=== PATIENT | male | born 1950 | race African-American/Black ===

== ENCOUNTER → 2017-05-16 | Day surgery (SDC) | payer MEDICARE ==
[~2017-05-16] MED LIST: HYDROmorphone 2 MG/ML VIAL IV; LIDOCAINE 1% PF 2 ML VIAL. ID; MORPHINE SULFATE 2 MG/ML DISP.SYRIN. IV; MORPHINE SULFATE 4 MG/ML DISP.SYRIN. IV; ONDANSETRON PF 4 MG/2 ML VIAL. IV; PROCHLORPERAZINE 10 MG/2 ML VIAL. IV; PROPOFOL 20 ML IV; fentaNYL PF VIAL 100 MCG/2 ML VIAL IV
[2017-05-16] MEDS: IV RINGERS,LACTATED 1000ML 1,000 ML IV (07:00)
[2017-05-16 08:07] LABS: POC GLUCOSE 122 mg/dL (70-99)
== END | disposition home or self-care (01) ==
LOC: ENDOS 07:31
DX: Z12.11 Encounter for screening for malignant neoplasm of colon (principal); K64.0 First degree hemorrhoids; I10 Essential (primary) hypertension; M10.9 Gout, unspecified; G24.3 Spasmodic torticollis; M13.861 Other specified arthritis, right knee; E78.00 Pure hypercholesterolemia, unspecified; Z96.659 Presence of unspecified artificial knee joint
CPT/HCPCS: 45378; 82962; J2704

== ENCOUNTER 2017-12-28 07:07 | Emergency (ER) | payer MEDICARE ==
[2017-12-28 07:35] LABS: ADD MAN DIFF? NO
[2017-12-28 07:49] LABS: ANION GAP 11 (6-14); BLOOD UREA NITROGEN 23 mg/dL (8-26); CALCIUM 9.1 mg/dL (8.5-10.1); CARBON DIOXIDE 24 mmol/L (21-32); CHLORIDE 105 mmol/L (98-107); CREATININE 1.3 mg/dL (0.7-1.3); GFR 66.4; GLUCOSE 154 mg/dL (70-99); POTASSIUM 3.8 mmol/L (3.5-5.1); SODIUM 140 mmol/L (136-145)
[2017-12-28 07:50] LABS: BASO % 1 % (0-3); EOS # 0.3 x10^3/uL (0.0-0.7); EOS % 4 % (0-3); HEMATOCRIT 41.6 % (39.0-53.0); HEMOGLOBIN 13.9 g/dL (13.0-17.5); LYMPH # 2.2 x10^3/uL (1.0-4.8); LYMPH % 33 % (24-48); MEAN CORPUSCULAR HEMOGLOBIN 29 pg (25-35); MEAN CORPUSCULAR HGB CONC 33 g/dL (31-37); MEAN CORPUSCULAR VOLUME 87 fL (79-100); MONO % 15 % (0-9); NEUT % 47 % (31-73); PLATELET COUNT 233 x10^3/uL (140-400); RED BLOOD COUNT 4.76 x10^6/uL (4.30-5.70); RED CELL DISTRIBUTION WIDTH 14.7 % (11.5-14.5); WHITE BLOOD COUNT 6.5 x10^3/uL (4.0-11.0)
[2017-12-28 07:58] LABS: TROPONINI < 0.017 ng/mL (0.000-0.055)
[2017-12-28] MEDS: MECLIZINE HCL 12.5 MG TABLET. PO (08:09)
[2017-12-28] MEDS: ONDANSETRON PF 4 MG/2 ML VIAL. IV (08:11)
[2017-12-28] MEDS: MORPHINE SULFATE 4 MG/ML DISP.SYRIN. IV (08:14)
[2017-12-28] MEDS: IV NORMAL SALINE 1000ML BAG 1,000 ML IV (10:15)
[2017-12-28] MEDS: KETOROLAC 30 MG/ML INJ. IV (10:16)
== END 2017-12-28 11:50 | disposition home or self-care (01) ==
LOC: ER 07:07
DX: R07.89 Other chest pain (principal); R51 Headache; R42 Dizziness and giddiness; R11.0 Nausea; E78.00 Pure hypercholesterolemia, unspecified; I10 Essential (primary) hypertension; E11.9 Type 2 diabetes mellitus without complications; M10.9 Gout, unspecified; Z86.73 Personal history of transient ischemic attack (TIA), and cerebral infarction without residual deficits
CPT/HCPCS: 36415; 70450; 71046; 80048; 84484; 85025; 93005; 96361; 96374; 96375; 99285-25; J1885; J2270; J2405; J7030; J8597

== ENCOUNTER 2018-10-17 21:13 | Inpatient (IN) | payer MEDICARE ==
[~2018-10-17] VITALS: Ht 175.3 cm; Wt 133.0 kg
[~2018-10-17 21:13] MED LIST changes: +ALLO100T PO; +AMLO5TAB10 PO; +ASPI-630 PO; +ATOR20TA PO; +ATOR20TA58 PO; +GLIP5TAB10 PO; +HYDR-2761 PO; +HYDR-3164 PO; -HYDROmorphone 2 MG/ML VIAL IV; +IBUP-1060 PO; -LIDOCAINE 1% PF 2 ML VIAL. ID; +LOSA1TAB22 PO; +METF10007 PO; +METH-37 PO; -MORPHINE SULFATE 2 MG/ML DISP.SYRIN. IV; -MORPHINE SULFATE 4 MG/ML DISP.SYRIN. IV; -ONDANSETRON PF 4 MG/2 ML VIAL. IV; +OXYC10TA46 PO; +OXYC1TAB22 PO; -PROCHLORPERAZINE 10 MG/2 ML VIAL. IV; -PROPOFOL 20 ML IV; +WARF-78 PO; -fentaNYL PF VIAL 100 MCG/2 ML VIAL IV
[2018-10-17] MEDS ORDERED: ONDANSETRON PF 4 MG/2 ML VIAL. IV ONE (21:30)
[2018-10-17] MEDS ORDERED: MORPHINE SULFATE 4 MG/ML VIAL. IV/SQ PRN (21:30)
[2018-10-17] MEDS ORDERED: KETOROLAC 30 MG/ML VIAL. IV ONE (21:30)
[2018-10-17] MEDS ORDERED: IV NORMAL SALINE 1000ML BAG 1,000 ML IV SCH (21:30)
[2018-10-17 21:59] LABS: BASO % 0 % (0-3); EOS # 0.1 x10^3/uL (0.0-0.7); EOS % 2 % (0-3); HEMOGLOBIN 13.7 g/dL (13.0-17.5); LYMPH # 2.1 x10^3/uL (1.0-4.8); LYMPH % 26 % (24-48); MEAN CORPUSCULAR HEMOGLOBIN 28 pg (25-35); MEAN CORPUSCULAR HGB CONC 33 g/dL (31-37); MEAN CORPUSCULAR VOLUME 86 fL (79-100); MONO # 1.3 x10^3/uL (0.0-1.1); MONO % 16 % (0-9); NEUT # 4.6 x10^3uL (1.8-7.7); NEUT % 56 % (31-73); PLATELET COUNT 211 x10^3/uL (140-400); RED BLOOD COUNT 4.85 x10^6/uL (4.30-5.70); RED CELL DISTRIBUTION WIDTH 15.1 % (11.5-14.5); WHITE BLOOD COUNT 8.2 x10^3/uL (4.0-11.0)
[2018-10-17 22:07] LABS: CALCIUM 9.4 mg/dL (8.5-10.1); CREATININE 1.3 mg/dL (0.7-1.3); GFR 66.4; POTASSIUM 3.4 mmol/L (3.5-5.1)
[2018-10-17] MEDS ORDERED: INDO50CA5 PO (22:07)
[2018-10-17] MEDS ORDERED: METO-269 PO (22:07)
[2018-10-17] MEDS ORDERED: GLIP5TAB22 PO (22:07)
[2018-10-17 22:13] LABS: ALBUMIN 3.5 g/dL (3.4-5.0); ALBUMIN/GLOBULIN RATIO 0.9 (1.0-1.7); TOTAL BILIRUBIN 0.7 mg/dL (0.2-1.0); TOTAL PROTEIN 7.6 g/dL (6.4-8.2)
--- NOTE | 2018-10-17 22:23 | RAD ---
CT abdomen and pelvis without contrast 10/17/2018 Clinical Indication: Left flank pain Comparison: None Technique: Multiple CT images of the abdomen and pelvis were obtained without contrast. *One or more of the following individualized dose reduction techniques were utilized for this examination: 1. Automated exposure control. 2. Adjustment of the mA and/or kV according to patient size. 3. Use of iterative reconstruction technique. Findings: Evaluation of the solid abdominopelvic viscera, vasculature and lymphadenopathy are limited in the absence of intravenous contrast. Heart size is normal. Minimal dependent atelectasis in both lungs. Coronary artery calcifications. Unenhanced contours of the liver, gallbladder, spleen, pancreas, and kidneys are unremarkable. No hydronephrosis or nephrolithiasis. There is a right adrenal gland hypodense nodule measuring 0.9 cm with average Hounsfield units less than 10 consistent with a benign adenoma. There is low-attenuation thickening of the left adrenal gland likely representing hyperplasia or benign adenomatous change. Abdominal aorta is normal in caliber with mild aortoiliac calcified plaque. No bowel obstruction. The appendix is normal in appearance. No abdominal free fluid. No pneumoperitoneum. Urinary bladder, prostate and seminal vesicles unremarkable. There is a fat-containing umbilical hernia. There are no destructive osseous lesions. Impression: 1. No hydronephrosis or nephrolithiasis. 2. Coronary artery calcifications. Electronically signed by: Magan Caballero MD (10/17/2018 10:20 PM) [facility]
--- NOTE | 2018-10-17 22:33 | PHYS DOC ---
Past Medical History Past Medical History: CVA, Diabetes-Type II, High Cholesterol, Hypertension Additional Past Medical Histor: GOUT Past Surgical History: Knee Replacement Additional Past Surgical Histo: RIGHT KNEE, NERVE SX IN BILAT ELBOWS Alcohol Use: Rarely Drug Use: None Adult General Chief Complaint Chief Complaint: FLANK PAIN [facility] HPI Patient is a 59-year-old male who presents with complaint of onset of left- sided flank pain that started yesterday. Patient states that pain has progressively gotten worse. He states the pain is about an 8 out of 10. He denies any nausea or vomiting. He also denies any diaphoresis. He states that he has had no urinary discomfort and has not had any hematuria. He describes the pain as like a deep ache at times and when he takes in a deep breath as sharp and stabbing in nature. Patient states that nothing improves symptoms. Review of Systems Review of Systems Constitutional: Denies fever or chills [] Respiratory: Denies cough or shortness of breath [] Cardiovascular: No additional information not addressed in HPI [] GI: Denies abdominal pain, nausea, vomiting or diarrhea [] : Denies dysuria or hematuria [] Musculoskeletal: Positive for left flank pain [] Integument: Denies rash or skin lesions [] All other systems were reviewed and found to be within normal limits, except as documented in this note. Current Medications Current Medications Current Medications Medications (Trade) Dose Ordered Sig/Antonia Start Time Stop Time Status Last Admin Dose Admin Ketorolac Tromethamine (Toradol 30mg Vial) 30 mg 1X ONCE 10/17/18 21:30 10/17/18 21:33 DC 10/17/18 21:56 30 MG Morphine Sulfate (Morphine Sulfate) 4 mg PRN Q15MIN PRN 10/17/18 21:30 10/18/18 21:29 10/17/18 21:57 4 MG Ondansetron HCl (Zofran) 4 mg 1X ONCE 10/17/18 21:30 10/17/18 21:33 DC 10/17/18 21:56 4 MG Sodium Chloride 1,000 ml @ 1,000 mls/hr Q1H 10/17/18 21:30 10/17/18 22:29 DC 10/17/18 21:57 1,000 MLS/HR Allergies Allergies Allergies Coded Allergies Type Severity Reaction Last Updated Verified No Known Drug Allergies 05/16/17 No Physical Exam Physical Exam Constitutional: Well developed, well nourished, no acute distress, non-toxic appearance. [] HENT: Normocephalic, atraumatic, bilateral external ears normal, oropharynx moist, no oral exudates, nose normal. [] Eyes: PERRLA, EOMI, conjunctiva normal, no discharge. [] Neck: Normal range of motion, no tenderness, supple, no stridor. [] Cardiovascular: Regular rate and rhythm[] Lungs & Thorax: Bilateral breath sounds clear to auscultation [] Abdomen: Bowel sounds normal, soft, no tenderness. [] Skin: Warm, dry, no erythema, no rash. [] Back: No tenderness, no CVA tenderness. Left lateral flank does demonstrate tenderness to palpation just below the rib margin. [] Extremities: No tenderness, no cyanosis, no clubbing, ROM intact, no edema. [] Neurologic: Alert and oriented X 3, no focal deficits noted. [] Current Patient Data Vital Signs Vital Signs Date Time Temp Pulse Resp B/P (MAP) Pulse Ox O2 Delivery O2 Flow Rate FiO2 10/17/18 21:57 22 96 Room Air 10/17/18 21:31 98.5 97 158/89 (112) 98.5 Lab Values Laboratory Tests Test 10/17/18 21:50 White Blood Count 8.2 x10^3/uL (4.0-11.0) Red Blood Count 4.85 x10^6/uL (4.30-5.70) Hemoglobin 13.7 g/dL (13.0-17.5) Hematocrit 42.0 % (39.0-53.0) Mean Corpuscular Volume 86 fL (79-100) Mean Corpuscular Hemoglobin 28 pg (25-35) Mean Corpuscular Hemoglobin Concent 33 g/dL (31-37) Red Cell Distribution Width 15.1 % (11.5-14.5) H Platelet Count 211 x10^3/uL (140-400) Neutrophils (%) (Auto) 56 % (31-73) Lymphocytes (%) (Auto) 26 % (24-48) Monocytes (%) (Auto) 16 % (0-9) H Eosinophils (%) (Auto) 2 % (0-3) Basophils (%) (Auto) 0 % (0-3) Neutrophils # (Auto) 4.6 x10^3uL (1.8-7.7) Lymphocytes # (Auto) 2.1 x10^3/uL (1.0-4.8) Monocytes # (Auto) 1.3 x10^3/uL (0.0-1.1) H Eosinophils # (Auto) 0.1 x10^3/uL (0.0-0.7) Basophils # (Auto) 0.0 x10^3/uL (0.0-0.2) Sodium Level 141 mmol/L (136-145) Potassium Level 3.4 mmol/L (3.5-5.1) L Chloride Level 102 mmol/L (98-107) Carbon Dioxide Level 29 mmol/L (21-32) Anion Gap 10 (6-14) Blood Urea Nitrogen 17 mg/dL (8-26) Creatinine 1.3 mg/dL (0.7-1.3) Estimated GFR (Cockcroft-Gault) 66.4 BUN/Creatinine Ratio 13 (6-20) Glucose Level 112 mg/dL (70-99) H Calcium Level 9.4 mg/dL (8.5-10.1) Total Bilirubin 0.7 mg/dL (0.2-1.0) Aspartate Amino Transferase (AST) 15 U/L (15-37) Alanine Aminotransferase (ALT) 35 U/L (16-63) Alkaline Phosphatase 85 U/L (46-116) Total Protein 7.6 g/dL (6.4-8.2) Albumin 3.5 g/dL (3.4-5.0) Albumin/Globulin Ratio 0.9 (1.0-1.7) L Lipase 1314 U/L (73-393) H Laboratory Tests 10/17/18 21:50 Laboratory Tests 10/17/18 21:50 EKG EKG [] Radiology/Procedures Radiology/Procedures [] Impressions: PROCEDURE: CT ABDOMEN PELVIS WO CONTRAST CT abdomen and pelvis without contrast 10/17/2018 Clinical Indication: Left flank pain Comparison: None Technique: Multiple CT images of the abdomen and pelvis were obtained without contrast. *One or more of the following individualized dose reduction techniques were utilized for this examination: 1. Automated exposure control. 2. Adjustment of the mA and/or kV according to patient size. 3. Use of iterative reconstruction technique. Findings: Evaluation of the solid abdominopelvic viscera, vasculature and lymphadenopathy are limited in the absence of intravenous contrast. Heart size is normal. Minimal dependent atelectasis in both lungs. Coronary artery calcifications. Unenhanced contours of the liver, gallbladder, spleen, pancreas, and kidneys are unremarkable. No hydronephrosis or nephrolithiasis. There is a right adrenal gland hypodense nodule measuring 0.9 cm with average Hounsfield units less than 10 consistent with a benign adenoma. There is low-attenuation thickening of the left adrenal gland likely representing hyperplasia or benign adenomatous change. Abdominal aorta is normal in caliber with mild aortoiliac calcified plaque. No bowel obstruction. The appendix is normal in appearance. No abdominal free fluid. No pneumoperitoneum. Urinary bladder, prostate and seminal vesicles unremarkable. There is a fat-containing umbilical hernia. There are no destructive osseous lesions. Impression: 1. No hydronephrosis or nephrolithiasis. 2. Coronary artery calcifications. Electronically signed by: Lachelle Caballero MD (10/17/2018 10:20 PM) [id number] DICTATED and SIGNED BY: LACHELLE CABALLERO MD DATE: 10/17/182219 Course & Med Decision Making Course & Med Decision Making Pertinent Labs and Imaging studies reviewed. (See chart for details) [] Jamison Disclaimer Jamison Disclaimer This electronic medical record was generated, in whole or in part, using a voice recognition dictation system. Departure Departure Impression: Primary Impression: Acute pancreatitis Disposition: 09 ADMITTED INPATIENT Admitting Physician: Maryjo Fam Condition: IMPROVED Referrals: DENIZ CABRERA MD (PCP) Problem Qualifiers Primary Impression: Acute pancreatitis Pancreatitis type: unspecified pancreatitis type Acute pancreatitis complication: no infection or necrosis Qualified Codes: K85.90 - Acute pancreatitis without necrosis or infection, unspecified CHAUNCEY ALONZO Jr. DO Oct 17, 2018 22:33
[2018-10-17 22:53] LABS: BILIRUBIN,URINE NEGATIVE (NEG); CLARITY,URINE CLEAR; COLOR,URINE YELLOW; NITRITE,URINE NEGATIVE (NEG); PROTEIN,URINE NEGATIVE (NEG-TRACE)
[2018-10-17] MEDS ORDERED: ONDANSETRON PF 4 MG/2 ML VIAL. IV PRN (23:00)
[2018-10-17 23:02] LABS: RBC,URINE OCC /HPF (0-2); WBC,URINE OCC /HPF (0-4)
[2018-10-17 23:03] LABS: BACTERIA,URINE 0 /HPF (0-FEW); SQUAMOUS EPITHELIAL CELL,UR OCC /LPF
[2018-10-17] MEDS: fentaNYL PF VIAL 100 MCG/2 ML VIAL IV PRN (23:23)
[2018-10-17 23:50] VITALS: BP 145/83
[2018-10-18] MEDS: IV NORMAL SALINE 1000ML BAG 1,000 ML IV SCH ×2 (00:14→08:20)
--- NOTE | 2018-10-18 01:24 | NUR ---
The patient, FRIDA MIDDLETON, 67 y/o, M admitted by ALONDRA STEELE MD, was given written information regarding hospital policies, unit procedures and contact persons. Valuables were checked and and left with patient. Pt was oriented to room, call light and bathroom. Pt advised not to get up without calling for help. in room with patient.
[2018-10-18 03:00] VITALS: BP 119/71
[2018-10-18] MEDS: fentaNYL PF VIAL 100 MCG/2 ML VIAL IV PRN (04:13)
[2018-10-18 05:37] LABS: BASO % 0 % (0-3); EOS # 0.1 x10^3/uL (0.0-0.7); EOS % 2 % (0-3); HEMATOCRIT 38.1 % (39.0-53.0); HEMOGLOBIN 12.6 g/dL (13.0-17.5); LYMPH % 28 % (24-48); MEAN CORPUSCULAR HEMOGLOBIN 29 pg (25-35); MEAN CORPUSCULAR HGB CONC 33 g/dL (31-37); MEAN CORPUSCULAR VOLUME 87 fL (79-100); MONO # 1.2 x10^3/uL (0.0-1.1); MONO % 17 % (0-9); NEUT # 3.8 x10^3uL (1.8-7.7); NEUT % 53 % (31-73); PLATELET COUNT 173 x10^3/uL (140-400); RED BLOOD COUNT 4.37 x10^6/uL (4.30-5.70); WHITE BLOOD COUNT 7.1 x10^3/uL (4.0-11.0)
[2018-10-18 05:48] LABS: CALCIUM 8.7 mg/dL (8.5-10.1); CREATININE 1.3 mg/dL (0.7-1.3); GFR 66.4; POTASSIUM 3.6 mmol/L (3.5-5.1)
[2018-10-18 07:00] VITALS: BP 134/74
[2018-10-18] MEDS ORDERED: DEXTROSE 50% 25 GM / 50ML DISP.SYRIN. IV PRN (07:45)
[2018-10-18] MEDS ORDERED: HYDROcodone/APAP 5/325MG 1 TAB TABLET PO PRN (07:45)
--- NOTE | 2018-10-18 07:49 | PDOC1 ---
History and Physical Date of Admission Date of Admission 10/17/18 Identification/Chief Complaint Chief Complaint Left flank pain Source Source: Patient History of Present Illness History of Present Illness Pt presented to the emergency room c/o left lower flank pain that had started Jeronimo night and had not improved. Pt states that pain was constant. He was not doing anything specific when it started and can not remember doing any major physical activity over the past couple of days. The only thing that has improved the pain is the Fentanyl. He was incidentally found to have pancreatitis. Pt states that he was having a lot of nausea and vomiting 2 weeks ago but currently feels okay. Sometimes gets pain in the center of his chest. Denies alcohol use. Past Medical History Cardiovascular: HTN, Hyperlipidemia Pulmonary: No pertinent hx CENTRAL NERVOUS SYSTEM: Periperal neuropathy GI: No pertinent hx Heme/Onc: No pertinent hx Hepatobiliary: No pertinent hx Psych: No pertinent hx Rheumatologic: No pertinent hx Infectious disease: No pertinent hx ENT: No pertinent hx Renal/: No pertinent hx Endocrine: Diabetes Dermatology: No pertinent hx Past Surgical History Past Surgical History: Total knee replacement, Other (Nerve movement in arms) Family History Family History: No Significant Social History Smoke: No ALCOHOL: none Drugs: None Current Problem List Problem List Problems Medical Problems: (1) Acute pancreatitis Status: Acute Current Medications Current Medications Current Medications Medications (Trade) Dose Ordered Sig/Antonia Start Time Stop Time Status Last Admin Dose Admin Fentanyl Citrate (Fentanyl 2ml Vial) 50 mcg PRN Q2HR PRN 10/17/18 23:00 10/18/18 04:13 50 MCG Ketorolac Tromethamine (Toradol 30mg Vial) 30 mg 1X ONCE 10/17/18 21:30 10/17/18 21:33 DC 10/17/18 21:56 30 MG Morphine Sulfate (Morphine Sulfate) 4 mg PRN Q15MIN PRN 10/17/18 21:30 10/18/18 21:29 10/17/18 21:57 4 MG Ondansetron HCl (Zofran) 4 mg PRN Q8HRS PRN 10/17/18 23:00 10/18/18 22:59 Sodium Chloride 1,000 ml @ 125 mls/hr Q8H 10/17/18 23:00 10/18/18 22:59 10/18/18 00:14 125 MLS/HR Allergies Allergies Allergies Coded Allergies Type Severity Reaction Last Updated Verified No Known Drug Allergies 05/16/17 No ROS Review of System CONSTITUTIONAL: No fever or chills EYES: No recent changes SKIN: No rash or itching CARDIOVASCULAR: No chest pain, syncope, palpitations, or edema RESPIRATORY: No SOB or cough GASTROINTESTINAL: No nausea, vomiting, +left lower flank pain NEUROLOGICAL: No headaches or weakness ENDOCRINE: No cold or heat intolerance GENITOURINARY: No urgency or frequency of urination MUSCULOSKELETAL: No back pain or joint pain LYMPHATICS: No enlarged lymph nodes PSYCHIATRIC: No anxiety or depression Physical Exam Physical Exam GEN.: No apparent distress. Alert and oriented. HEENT: Head is normocephalic, atraumatic NECK: Supple. LUNGS: Clear to auscultation. HEART: RRR, S1, S2 present. Peripheral pulses intact ABDOMEN: Soft, nontender. Positive bowel sounds. Tender left lower flank, no abnormalities appreciated EXTREMITIES: Without any cyanosis. NEUROLOGIC: Normal speech, normal tone PSYCHIATRIC: Normal affect, normal mood. SKIN: No ulcerations Vitals Vitals Vital Signs Date Time Temp Pulse Resp B/P (MAP) Pulse Ox O2 Delivery O2 Flow Rate FiO2 10/18/18 05:00 Room Air 10/18/18 03:00 98.5 77 18 119/71 (87) 97 98.5 Labs Labs Laboratory Tests Test 10/17/18 21:50 10/17/18 22:44 10/18/18 04:00 White Blood Count 8.2 x10^3/uL (4.0-11.0) 7.1 x10^3/uL (4.0-11.0) Red Blood Count 4.85 x10^6/uL (4.30-5.70) 4.37 x10^6/uL (4.30-5.70) Hemoglobin 13.7 g/dL (13.0-17.5) 12.6 g/dL (13.0-17.5) Hematocrit 42.0 % (39.0-53.0) 38.1 % (39.0-53.0) Mean Corpuscular Volume 86 fL (79-100) 87 fL (79-100) Mean Corpuscular Hemoglobin 28 pg (25-35) 29 pg (25-35) Mean Corpuscular Hemoglobin Concent 33 g/dL (31-37) 33 g/dL (31-37) Red Cell Distribution Width 15.1 % (11.5-14.5) 15.0 % (11.5-14.5) Platelet Count 211 x10^3/uL (140-400) 173 x10^3/uL (140-400) Neutrophils (%) (Auto) 56 % (31-73) 53 % (31-73) Lymphocytes (%) (Auto) 26 % (24-48) 28 % (24-48) Monocytes (%) (Auto) 16 % (0-9) 17 % (0-9) Eosinophils (%) (Auto) 2 % (0-3) 2 % (0-3) Basophils (%) (Auto) 0 % (0-3) 0 % (0-3) Neutrophils # (Auto) 4.6 x10^3uL (1.8-7.7) 3.8 x10^3uL (1.8-7.7) Lymphocytes # (Auto) 2.1 x10^3/uL (1.0-4.8) 2.0 x10^3/uL (1.0-4.8) Monocytes # (Auto) 1.3 x10^3/uL (0.0-1.1) 1.2 x10^3/uL (0.0-1.1) Eosinophils # (Auto) 0.1 x10^3/uL (0.0-0.7) 0.1 x10^3/uL (0.0-0.7) Basophils # (Auto) 0.0 x10^3/uL (0.0-0.2) 0.0 x10^3/uL (0.0-0.2) Sodium Level 141 mmol/L (136-145) 143 mmol/L (136-145) Potassium Level 3.4 mmol/L (3.5-5.1) 3.6 mmol/L (3.5-5.1) Chloride Level 102 mmol/L (98-107) 106 mmol/L (98-107) Carbon Dioxide Level 29 mmol/L (21-32) 27 mmol/L (21-32) Anion Gap 10 (6-14) 10 (6-14) Blood Urea Nitrogen 17 mg/dL (8-26) 18 mg/dL (8-26) Creatinine 1.3 mg/dL (0.7-1.3) 1.3 mg/dL (0.7-1.3) Estimated GFR (Cockcroft-Gault) 66.4 66.4 BUN/Creatinine Ratio 13 (6-20) Glucose Level 112 mg/dL (70-99) 93 mg/dL (70-99) Calcium Level 9.4 mg/dL (8.5-10.1) 8.7 mg/dL (8.5-10.1) Total Bilirubin 0.7 mg/dL (0.2-1.0) Aspartate Amino Transf (AST/SGOT) 15 U/L (15-37) Alanine Aminotransferase (ALT/SGPT) 35 U/L (16-63) Alkaline Phosphatase 85 U/L (46-116) Total Protein 7.6 g/dL (6.4-8.2) Albumin 3.5 g/dL (3.4-5.0) Albumin/Globulin Ratio 0.9 (1.0-1.7) Amylase Level 606 U/L (25-115) Lipase 1314 U/L (73-393) Urine Collection Type Unknown Urine Color Yellow Urine Clarity Clear Urine pH 6.0 Urine Specific [place] 1.010 Urine Protein Negative mg/dL (NEG-TRACE) Urine Glucose (UA) Negative mg/dL (NEG) Urine Ketones (Stick) Negative mg/dL (NEG) Urine Blood Negative (NEG) Urine Nitrite Negative (NEG) Urine Bilirubin Negative (NEG) Urine Urobilinogen Dipstick 1.0 mg/dL (0.2 mg/dL) Urine Leukocyte Esterase Negative (NEG) Urine RBC Occ /HPF (0-2) Urine WBC Occ /HPF (0-4) Urine Squamous Epithelial Cells Occ /LPF Urine Bacteria 0 /HPF (0-FEW) Laboratory Tests Test 10/17/18 21:50 10/17/18 22:44 10/18/18 04:00 White Blood Count 8.2 x10^3/uL (4.0-11.0) 7.1 x10^3/uL (4.0-11.0) Red Blood Count 4.85 x10^6/uL (4.30-5.70) 4.37 x10^6/uL (4.30-5.70) Hemoglobin 13.7 g/dL (13.0-17.5) 12.6 g/dL (13.0-17.5) Hematocrit 42.0 % (39.0-53.0) 38.1 % (39.0-53.0) Mean Corpuscular Volume 86 fL (79-100) 87 fL (79-100) Mean Corpuscular Hemoglobin 28 pg (25-35) 29 pg (25-35) Mean Corpuscular Hemoglobin Concent 33 g/dL (31-37) 33 g/dL (31-37) Red Cell Distribution Width 15.1 % (11.5-14.5) 15.0 % (11.5-14.5) Platelet Count 211 x10^3/uL (140-400) 173 x10^3/uL (140-400) Neutrophils (%) (Auto) 56 % (31-73) 53 % (31-73) Lymphocytes (%) (Auto) 26 % (24-48) 28 % (24-48) Monocytes (%) (Auto) 16 % (0-9) 17 % (0-9) Eosinophils (%) (Auto) 2 % (0-3) 2 % (0-3) Basophils (%) (Auto) 0 % (0-3) 0 % (0-3) Neutrophils # (Auto) 4.6 x10^3uL (1.8-7.7) 3.8 x10^3uL (1.8-7.7) Lymphocytes # (Auto) 2.1 x10^3/uL (1.0-4.8) 2.0 x10^3/uL (1.0-4.8) Monocytes # (Auto) 1.3 x10^3/uL (0.0-1.1) 1.2 x10^3/uL (0.0-1.1) Eosinophils # (Auto) 0.1 x10^3/uL (0.0-0.7) 0.1 x10^3/uL (0.0-0.7) Basophils # (Auto) 0.0 x10^3/uL (0.0-0.2) 0.0 x10^3/uL (0.0-0.2) Sodium Level 141 mmol/L (136-145) 143 mmol/L (136-145) Potassium Level 3.4 mmol/L (3.5-5.1) 3.6 mmol/L (3.5-5.1) Chloride Level 102 mmol/L (98-107) 106 mmol/L (98-107) Carbon Dioxide Level 29 mmol/L (21-32) 27 mmol/L (21-32) Anion Gap 10 (6-14) 10 (6-14) Blood Urea Nitrogen 17 mg/dL (8-26) 18 mg/dL (8-26) Creatinine 1.3 mg/dL (0.7-1.3) 1.3 mg/dL (0.7-1.3) Estimated GFR (Cockcroft-Gault) 66.4 66.4 BUN/Creatinine Ratio 13 (6-20) Glucose Level 112 mg/dL (70-99) 93 mg/dL (70-99) Calcium Level 9.4 mg/dL (8.5-10.1) 8.7 mg/dL (8.5-10.1) Total Bilirubin 0.7 mg/dL (0.2-1.0) Aspartate Amino Transf (AST/SGOT) 15 U/L (15-37) Alanine Aminotransferase (ALT/SGPT) 35 U/L (16-63) Alkaline Phosphatase 85 U/L (46-116) Total Protein 7.6 g/dL (6.4-8.2) Albumin 3.5 g/dL (3.4-5.0) Albumin/Globulin Ratio 0.9 (1.0-1.7) Amylase Level 606 U/L (25-115) Lipase 1314 U/L (73-393) Urine Collection Type Unknown Urine Color Yellow Urine Clarity Clear Urine pH 6.0 Urine Specific [place] 1.010 Urine Protein Negative mg/dL (NEG-TRACE) Urine Glucose (UA) Negative mg/dL (NEG) Urine Ketones (Stick) Negative mg/dL (NEG) Urine Blood Negative (NEG) Urine Nitrite Negative (NEG) Urine Bilirubin Negative (NEG) Urine Urobilinogen Dipstick 1.0 mg/dL (0.2 mg/dL) Urine Leukocyte Esterase Negative (NEG) Urine RBC Occ /HPF (0-2) Urine WBC Occ /HPF (0-4) Urine Squamous Epithelial Cells Occ /LPF Urine Bacteria 0 /HPF (0-FEW) VTE Prophylaxis Ordered VTE Prophylaxis Devices: No VTE Pharmacological Prophylaxi: No Assessment/Plan Assessment/Plan Pt is a 67yo AAM admitted for pancreatitis 1)Pancreatitis- pt currently NPO. Essentially asymptomatic. Will repeat level this afternoon. If pt feeling well and doing well with po pain medication, will D/C home. Will get abdominal ultrasound and lipid panel. Pt is not a drinker 2)DM2- HbA1C pending. Will hold pt's Metformin and Glipizide for now and have SSI available 3)HTN- BP at goal currently. Will resume pt's HCTZ/Losartan and hold his Norvasc 4)Gout- asymptomatic. Will continue pt's allopurinol 5)HLD- pt continued on atorvastatin 20mg ALONDRA STEELE MD Oct 18, 2018 07:49
[2018-10-18] MEDS: INSULIN LISPRO 300 UNITS/3 ML INSULN.PEN. SQ SCH ×2 (08:00→12:00)
[2018-10-18 08:46] LABS: CHOLESTEROL/HDL RATIO 3.2
[2018-10-18] MEDS ORDERED: hydroCHLOROthiazide 25 MG TABLET PO SCH (09:00)
[2018-10-18] MEDS ORDERED: ALLOPURINOL 300 MG TABLET. PO SCH (09:00)
[2018-10-18] MEDS ORDERED: LOSARTAN POTASSIUM 50 MG TABLET. PO SCH (09:00)
[2018-10-18 11:00] VITALS: BP 114/72
--- NOTE | 2018-10-18 12:59 | RAD ---
Clinical History: Pancreatitis Technique: Sonographic examination of the right upper quadrant of the abdomen was performed and multiple static images were obtained. Comparison: none Findings: The majority of the liver is visualized and appears homogeneous however there is increased echogenicity and attenuation of sound which further limits ultrasound sensitivity for possible solid liver lesion. The liver measures 19 cm in length. The common bile duct appears normal and measures 6 mm in diameter. The gallbladder is seen with multiple stones but no wall thickening surrounding fluid or tenderness. The pancreas is not well visualized due to overlying bowel gas. The right kidney appears normal and measures 12 cm in length. Impression: 1. Mild hepatomegaly. 2. Increase echogenicity in the liver is likely secondary to fatty infiltration. Hepatocellular disease or a liver mass cannot be excluded. 3. Cholelithiasis without evidence of acute cholecystitis. Electronically signed by: Stu Toledo III, MD (10/18/2018 12:56 PM) [id number]
[2018-10-18 15:00] VITALS: BP 127/80
--- NOTE | 2018-10-18 15:15 | NUR ---
PATIENT ALERT AND VERBALLY RESPONSIVE, RESTING IN BED AT THIS TIME, CONTINUES TO RATE PAIN 2 ON SCALE OF 1-10, PATIENT HAS RECEIVED ICE CHIPS THROUGHOUT THIS SHIFT BUT HAS NOT REQUIRED PAIN MEDICATIONS, INQUIRING ABOUT GOING HOME TODAY, WILL PLACE CALL TO DR. STEELE FOR ORDERS.
--- NOTE | 2018-10-18 15:30 | NUR ---
CALL PLACED TO DR. STEELE AND ORDERS RECEIVED TO DISCHARGE TO HOME PATIENTS LIPASE IS [phone]. PATIENT IS TO RESUME HOME MEDICATIONS AND FOLLOW UP WITH DR. CABRERA IN 2 WEEKS.
--- NOTE | 2018-10-18 15:40 | NUR ---
DISCHARGE INSTRUCTIONS GIVEN, QUESTIONS AND CONCERNS ANSWERED, PATIENT AND AT THE BEDSIDE VERBALIZED UNDERSTANDING OF DISCHARGE INSTRUCTIONS INCLUDING TAKING ALL MEDICATIONS INSTRUCTED AND FOLLOWING UP WITH DR. CABRERA IN 2 WEEKS. ALL PERSONAL BELONGINGS GATHERED BY THE PATIENT/ AND PLACED IN BAGS FOR DISCHARGE.
--- NOTE | 2018-10-18 16:00 | NUR ---
PATIENT LEAVES THE UNIT PER W/C ACCOMPANIED BY THIS RADIOLOGY NURSE AND FAMILY MEMBERS, EMOTIONAL SUPPORT GIVEN, FOLLOW UP APPOINTMENTS ENCOURAGED.
[2018-10-18] MEDS ORDERED: ATORVASTATIN CALCIUM 20 MG TABLET PO SCH (21:00)
[2018-10-18 23:10] LABS: HEMOGLOBIN A1C 6.4 % (4.8-5.6)
--- NOTE | 2018-10-19 06:59 | PDOC3 ---
Discharge Summary Date of Admission: Oct 18, 2018 Date of Discharge: Oct 18, 2018 Follow-Up: Other ([address] Noriega) Admitting Diagnosis comment: Pancreatitis FINAL DIAGNOSIS Pancreatitis, left side pain likely musculoskeletal, DM2, HTN, Gout, HLD, Cholelithiasis Brief Hospital Course Pt is a 67yo AAM admitted for pancreatitis 1)Pancreatitis- pt made NPO. Lipase level dropped from 1314 to 254. Pt was never symptomatic. U/S showed cholelithiasis. F/u with PCP. 2)Left abdominal wall pain- likely musculoskeletal. DC'd with small amount of hydrocodone/apap 3)DM2- well controlled. DC'd on home medications of Metformin and Glipizide 4)HTN- BP at goal, continued on HCTZ/Losartan. Norvasc held initially but resumed on D/C 5)Gout- asymptomatic. Continued on allopurinol 6)HLD- pt continued on atorvastatin 20mg 7)Cholelithiasis Discharge Medications Current Medications Morphine Sulfate (Morphine Sulfate) 4 mg PRN Q15MIN PRN IV/SQ PAIN GREATER THAN 3/10 Last administered on 10/17/18at 21:57; Start 10/17/18 at 21:30; Stop at 16:20; Status DC Sodium Chloride 1,000 ml @ 1,000 mls/hr Q1H IV Last administered on 10/17/18at 21:57; Start 10/17/18 at 21:30; Stop 10/17/18 at 22:29; Status DC Ondansetron HCl (Zofran) 4 mg 1X ONCE IV Last administered on 10/17/18at 21:56 ; Start 10/17/18 at 21:30; Stop 10/17/18 at 21:33; Status DC Ketorolac Tromethamine (Toradol 30mg Vial) 30 mg 1X ONCE IV Last administered on 10/17/18at 21:56; Start 10/17/18 at 21:30; Stop 10/17/18 at 21:33; Status DC Ondansetron HCl (Zofran) 4 mg PRN Q8HRS PRN IV NAUSEA/VOMITING; Start 10/17/18 at 23:00; Stop 10/18/18 at 16:20; Status DC Sodium Chloride 1,000 ml @ 125 mls/hr Q8H IV Last administered on 10/18/18at 08 :20; Start 10/17/18 at 23:00; Stop 10/18/18 at 16:20; Status DC Fentanyl Citrate (Fentanyl 2ml Vial) 50 mcg PRN Q2HR PRN IV PAIN Last administered on 10/18/18at 04:13; Start 10/17/18 at 23:00; Stop 10/18/18 at 16:20 ; Status DC Acetaminophen/ Hydrocodone Bitart (Lortab 5/325) 1 tab PRN Q4HRS PRN PO PAIN; Start 10/18/18 at 07:45; Stop 10/18/18 at 16:20; Status DC Insulin Human Lispro (HumaLOG) 0-5 UNITS TIDWMEALS SQ ; Start 10/18/18 at 08:00 ; Stop 10/18/18 at 16:20; Status DC Dextrose (Dextrose 50%-Water Syringe) 12.5 gm PRN Q15MIN PRN IV SEE COMMENTS; Start 10/18/18 at 07:45; Stop 10/18/18 at 16:20; Status DC Allopurinol (Zyloprim) 300 mg DAILY PO ; Start 10/18/18 at 09:00; Stop 10/18/18 at 16:20; Status DC Atorvastatin Calcium (Lipitor) 20 mg HS PO ; Start 10/18/18 at 21:00; Stop 10/18 at 21:00; Status DC Hydrochlorothiazide (Hydrodiuril) 25 mg DAILY PO ; Start 10/18/18 at 09:00; Stop 10/18/18 at 16:20; Status DC Losartan Potassium (Cozaar) 100 mg DAILY PO ; Start 10/18/18 at 09:00; Stop at 16:20; Status DC Active Scripts Active Reported Toprol Xl (Metoprolol Succinate) 50 Mg Tab.er.24h 50 Mg PO DAILY Indomethacin 50 Mg Capsule 50 Mg PO DAILY Glipizide Er (Glipizide) 5 Mg Tab.er.24 5 Mg PO DAILY Allopurinol 100 Mg Tablet 300 Mg PO DAILY Amlodipine Besylate 5 Mg Tablet 5 Mg PO DAILY Metformin Hcl 1,000 Mg Tablet 1,000 Mg PO BIDWMEALS Atorvastatin Calcium 20 Mg Tablet 20 Mg PO HS Losartan-Hctz 100-25 Mg Tab (Losartan/Hydrochlorothiazide) 1 Each Tablet 1 Each PO DAILY LAST DOSE GIVEN: DATE:09-21-15 TIME:9:00 a.m. NEXT DOSE DUE: DATE:09-22-15 TIME:9:00 a.m. Vital Signs Vital Signs Date Time Temp Pulse Resp B/P (MAP) Pulse Ox O2 Delivery O2 Flow Rate FiO2 10/18/18 15:00 98.3 75 16 127/80 (96) 96 Room Air 98.3 Labs Laboratory Tests Test 10/17/18 21:50 10/17/18 22:44 10/18/18 04:00 10/18/18 07:15 White Blood Count 8.2 x10^3/uL (4.0-11.0) 7.1 x10^3/uL (4.0-11.0) Red Blood Count 4.85 x10^6/uL (4.30-5.70) 4.37 x10^6/uL (4.30-5.70) Hemoglobin 13.7 g/dL (13.0-17.5) 12.6 g/dL (13.0-17.5) Hematocrit 42.0 % (39.0-53.0) 38.1 % (39.0-53.0) Mean Corpuscular Volume 86 fL (79-100) 87 fL (79-100) Mean Corpuscular Hemoglobin 28 pg (25-35) 29 pg (25-35) Mean Corpuscular Hemoglobin Concent 33 g/dL (31-37) 33 g/dL (31-37) Red Cell Distribution Width 15.1 % (11.5-14.5) 15.0 % (11.5-14.5) Platelet Count 211 x10^3/uL (140-400) 173 x10^3/uL (140-400) Neutrophils (%) (Auto) 56 % (31-73) 53 % (31-73) Lymphocytes (%) (Auto) 26 % (24-48) 28 % (24-48) Monocytes (%) (Auto) 16 % (0-9) 17 % (0-9) Eosinophils (%) (Auto) 2 % (0-3) 2 % (0-3) Basophils (%) (Auto) 0 % (0-3) 0 % (0-3) Neutrophils # (Auto) 4.6 x10^3uL (1.8-7.7) 3.8 x10^3uL (1.8-7.7) Lymphocytes # (Auto) 2.1 x10^3/uL (1.0-4.8) 2.0 x10^3/uL (1.0-4.8) Monocytes # (Auto) 1.3 x10^3/uL (0.0-1.1) 1.2 x10^3/uL (0.0-1.1) Eosinophils # (Auto) 0.1 x10^3/uL (0.0-0.7) 0.1 x10^3/uL (0.0-0.7) Basophils # (Auto) 0.0 x10^3/uL (0.0-0.2) 0.0 x10^3/uL (0.0-0.2) Sodium Level 141 mmol/L (136-145) 143 mmol/L (136-145) Potassium Level 3.4 mmol/L (3.5-5.1) 3.6 mmol/L (3.5-5.1) Chloride Level 102 mmol/L (98-107) 106 mmol/L (98-107) Carbon Dioxide Level 29 mmol/L (21-32) 27 mmol/L (21-32) Anion Gap 10 (6-14) 10 (6-14) Blood Urea Nitrogen 17 mg/dL (8-26) 18 mg/dL (8-26) Creatinine 1.3 mg/dL (0.7-1.3) 1.3 mg/dL (0.7-1.3) Estimated GFR (Cockcroft-Gault) 66.4 66.4 BUN/Creatinine Ratio 13 (6-20) Glucose Level 112 mg/dL (70-99) 93 mg/dL (70-99) Calcium Level 9.4 mg/dL (8.5-10.1) 8.7 mg/dL (8.5-10.1) Total Bilirubin 0.7 mg/dL (0.2-1.0) Aspartate Amino Transf (AST/SGOT) 15 U/L (15-37) Alanine Aminotransferase (ALT/SGPT) 35 U/L (16-63) Alkaline Phosphatase 85 U/L (46-116) Total Protein 7.6 g/dL (6.4-8.2) Albumin 3.5 g/dL (3.4-5.0) Albumin/Globulin Ratio 0.9 (1.0-1.7) Amylase Level 606 U/L (25-115) Lipase 1314 U/L (73-393) Urine Collection Type Unknown Urine Color Yellow Urine Clarity Clear Urine pH 6.0 Urine Specific [place] 1.010 Urine Protein Negative mg/dL (NEG-TRACE) Urine Glucose (UA) Negative mg/dL (NEG) Urine Ketones (Stick) Negative mg/dL (NEG) Urine Blood Negative (NEG) Urine Nitrite Negative (NEG) Urine Bilirubin Negative (NEG) Urine Urobilinogen Dipstick 1.0 mg/dL (0.2 mg/dL) Urine Leukocyte Esterase Negative (NEG) Urine RBC Occ /HPF (0-2) Urine WBC Occ /HPF (0-4) Urine Squamous Epithelial Cells Occ /LPF Urine Bacteria 0 /HPF (0-FEW) Hemoglobin A1c 6.4 % (4.8-5.6) Triglycerides Level 34 mg/dL (0-150) Cholesterol Level 123 mg/dL (0-200) LDL Cholesterol, Calculated 78 mg/dL (0-100) VLDL Cholesterol, Calculated 7 mg/dL (0-40) Non-HDL Cholesterol Calculated 85 mg/dL (0-129) HDL Cholesterol 38 mg/dL (40-60) Cholesterol/HDL Ratio 3.2 Glucose (Fingerstick) 90 mg/dL (70-99) Test 10/18/18 11:20 10/18/18 14:10 Glucose (Fingerstick) 89 mg/dL (70-99) Lipase 254 U/L (73-393) Laboratory Tests Test 10/18/18 07:15 10/18/18 11:20 10/18/18 14:10 Glucose (Fingerstick) 90 mg/dL (70-99) 89 mg/dL (70-99) Lipase 254 U/L (73-393) Allergies Allergies Coded Allergies Type Severity Reaction Last Updated Verified No Known Drug Allergies 05/16/17 No Disposition/Orders: D/C to Home ALONDRA STEELE MD Oct 19, 2018 06:59
[2018-11-13] MEDS ORDERED: OXYC1TAB15 PO (09:45)
== END 2018-10-18 16:00 | disposition home or self-care (01) | DRG 439 ==
LOC: ER 21:23 → 5 NORTH 22:43
PROVIDERS: ADMIT Family Medicine; ATTEND Family Medicine
DX: K85.90 Acute pancreatitis without necrosis or infection, unspecified (principal); R65.10 Systemic inflammatory response syndrome (SIRS) of non-infectious origin without acute organ dysfunction; E78.00 Pure hypercholesterolemia, unspecified; I10 Essential (primary) hypertension; M10.9 Gout, unspecified; Z96.659 Presence of unspecified artificial knee joint; E78.5 Hyperlipidemia, unspecified; E11.51 Type 2 diabetes mellitus with diabetic peripheral angiopathy without gangrene; K80.20 Calculus of gallbladder without cholecystitis without obstruction; Z86.73 Personal history of transient ischemic attack (TIA), and cerebral infarction without residual deficits
CPT/HCPCS: 36415; 74176; 76705; 80048; 80053; 80061; 81001; 82150; 82962; 83036; 83690; 85025; 96361; 96374; 96375; J1815; J1885; J2270; J2405; J3010; J7030; 99285-25

== ENCOUNTER → 2018-10-21 | Outpatient (CLI) | payer MEDICARE ==
[2018-10-18 15:00] VITALS: BP 127/80
[~2018-10-21] MED LIST changes: +GLIP5TAB22 PO; +INDO50CA5 PO; +METO-269 PO; +OXYC1TAB15 PO
--- NOTE | 2018-10-22 09:53 | CARD ---
MR#: [id number] Date of Study: 10/22/2018 Ordering Physician: STEW TALBERT, Referring Physician: STEW TALBERT, Tech: Fátima Roy BRANDON APPROVED REPORT EXAM: Two-dimensional and M-mode echocardiogram with Doppler and color Doppler. Other Information Quality : Technically LimitedHR: 86bpm Rhythm : NSRTechnically limited study due to body habitus. INDICATION Murmur 2D DIMENSIONS RVDd3.4 (2.9-3.5cm)Left Atrium(2D)3.8 (1.6-4.0cm) IVSd1.3 (0.7-1.1cm)Aortic Root(2D)3.5 (2.0-3.7cm) LVDd4.1 (3.9-5.9cm)LVOT Diameter2.0 (1.8-2.4cm) PWd1.2 (0.7-1.1cm)LVDs3.0 (2.5-4.0cm) FS (%) 27.7 %SV39.8 ml LVEF(%)54.2 (>50%) M-Mode DIMENSIONS Left Atrium(MM)3.89 (2.5-4.0cm)Aortic Root3.61 (2.2-3.7cm) Aortic Valve AoV Peak Pedro.191.5cm/sAoV VTI35.9cm AO Peak GR.14.7mmHgLVOT Peak Pedro.87.7cm/s AO Mean GR.8mmHgAVA (VMAX)1.38cm2 MARY (VTI)1.50cm2 Mitral Valve MV E Omsoerfi50.4cm/sMV DECEL UREK641hf MV A Yoclbtgi79.3cm/sE/A Ratio0.8 Pulmonary Valve PV Peak Behnkwaj566.0cm/s LEFT VENTRICLE The left ventricle is normal size. There is mild concentric left ventricular hypertrophy. The left ve ntricular systolic function is normal. The Ejection Fraction is 55-60%. There is normal LV segmental wall motion. Transmitral Doppler flow pattern is Grade I-abnormal relaxation pattern. RIGHT VENTRICLE The right ventricle is normal size. There is normal right ventricular wall thickness. The right ventr icular systolic function is normal. ATRIA The left atrium size is normal. The right atrium size is normal. The interatrial septum is intact wit h no evidence for an atrial septal defect or patent foramen ovale as noted on 2-D or Doppler imaging. AORTIC VALVE The aortic valve is normal in structure and function. The aortic valve is trileaflet. Doppler and Col or Flow revealed no significant aortic regurgitation. There is no significant aortic valvular stenosi s. MITRAL VALVE The mitral valve is normal in structure and function. There is no evidence of mitral valve prolapse. There is no mitral valve stenosis. Doppler and Color Flow revealed no mitral valve regurgitation note d. TRICUSPID VALVE The tricuspid valve is normal in structure and function. Doppler and Color Flow revealed trace tricus pid valve regurgitation. There is no tricuspid valve prolapse or vegetation. There is no tricuspid va lve stenosis. PULMONIC VALVE The pulmonic valve is not well visualized. GREAT VESSELS The aortic root is normal in size. The ascending aorta is normal in size. The IVC is normal in size a nd collapses >50% with inspiration. PERICARDIAL EFFUSION There is no evidence of significant pericardial effusion. Critical Notification Critical Value: No <Conclusion> The left ventricular systolic function is normal. The Ejection Fraction is 55-60%. There is normal LV segmental wall motion. Transmitral Doppler flow pattern is Grade I-abnormal relaxation pattern. Trace tricuspid valve regurgitation. There is no evidence of significant pericardial effusion. Signed by : Conner Meyers, Electronically Approved : 10/22/2018 09:53:08
--- NOTE | 2018-10-22 10:45 | RAD ---
MR#: [id number] Date of Study: 10/22/2018 Ordering Physician: STEW TALBERT, Referring Physician: CARLOS JENKINS Tech: RT Carla Holt) (N) APPROVED REPORT Test Type: Exercise Stress Nurse/Tech: Shanelle Sidhu R.N. Test Indications: ERAZO, C/P Cardiac History: htn, obese,DM Medications: See Electronic Medical Record Medical History: See Electronic Medical Record Resting ECG: SR w/pacs and occaisional pvc's, inverted t wave in lead III Resting Heart Rate: 74 bpm Resting Blood Pressure: 137/87mmHg Pretest Chest Pain: No chest pain Nurse/Tech Notes S1S2, lungs CTA Consent: The procedure was explained to the patient in lay terms. Informed consent was witnessed. Higinio eout was entered into [employer]. History and Stress Test performed by RT Jonathon (Carson) (N) Stress Symptoms Dyspnea,Fatigue POST EXERCISE Reason for Termination: Reached target heart rate Target HR: Yes Max HR: 154 bpm 119% of Maximum Predicted HR: 129 bpm Exercise duration: 4:06 min:sec, 2 Stage Exercise capacity: 7METs Max Blood Pressure: 178/88mmHg Blood Pressure response to exercise: Normal blood pressure response during stress. Heart Rate response to exercise: WNL Chest Pain: Yes. slight chest tightness noted scale 3-4/10 noted after pt sat down for recovery perio d Arrhythmia: No. no change from abnormal baseline ST Change: Yes. frequent pvc's INTERPRETATION Stress EKG Conclusion: Abnormal EKG response with frequent PVC's at peak sterss. Imaging Protocol IMAGE PROTOCOL: Rest Tc-99m/stress Tc-99m 2 days Rest: Stress: Viability: Radiopharm.Tc99m VrvaziozdCw62d Sestamibi Dups04oCk 32.1mCi Duration 15min. 15min. Img Date 10/21/2018 10/22/2018 Inj-Img Vsxk21lkp. 60min. Rest Admin Site:IV - Right AntecubitalAdministrator:RT Carla Holt)(N) Stress Admin Site: IV - Right AntecubitalAdministrator: Meli Acosta, RT (R)(N) STRESS DATA End Diast. Vol.105.0mlLVEDV index BSA43.0ml End Syst. Vol.31.0mlLVESV index BSA13.0ml Myocardial Aojx670.0gEject. Jdkyjctc08.0% Stress Scores Regional WT1.00Summed WT6.00 Regional WM0.00Summed WM0.00 The rest and stress images show normal perfusion, normal contraction and thickening. LV Perf. Quant 17 Seg. SSS1.00 17 Seg. SRS3.00 17 Seg. SDS0.00 Stress Defect Extent (% LAD)0.00Rest Defect Extent (% LAD)0.00Rev. Defect Extent (% LAD)0.00 Stress Defect Extent (% LCX) 0.00Rest Defect Extent (% LCX)11.30Rev. Defect Extent (% LCX)0.00 Stress Defect Extent (% RCA)0.00Rest Defect Extent (% RCA)15.60Rev. Defect Extent (% RCA)0.00 Stress Defect Extent (% THERON)0.00Rest Defect Extent (% THERON)6.10Rev. Defect Extent (% THERON)0.00 Other Information Quality:Fair Risk Assessment: Low Risk Conclusion 1. Abnormal EKG response with frequent PVC's at peak stress. Patient complained of chest pain at aver age workload of 7.0 Mets 2. Normal perfusion at stress/rest. Subdiaphragmatic attenuation artifact noted. 3. Normal EF at > 60% 4. Low to moderate risk study. Signed by : Tobias Miller, Electronically Approved : 10/22/2018 10:44:32
== END | disposition home or self-care (01) ==
LOC: NM 07:35
PROVIDERS: ATTEND Internal Medicine Cardiovascular Disease
DX: I11.9 Hypertensive heart disease without heart failure (principal); R94.31 Abnormal electrocardiogram [ECG] [EKG]; R07.9 Chest pain, unspecified; E11.9 Type 2 diabetes mellitus without complications; E66.9 Obesity, unspecified
CPT/HCPCS: 78452; A9500; 93017; 93306; 96376

== ENCOUNTER → 2018-11-12 | Day surgery (SDC) | payer MEDICARE ==
[~2018-11-12] VITALS: Ht 175.3 cm; Wt 129.3 kg
[~2018-11-12] MED LIST changes: +ACETAMINOPHEN 500 MG TABLET PO ONE; +HYDROmorphone 2 MG/ML VIAL IV PRN; +INDOCYANINE GREEN 2.5 MG in TOTAL VOLUME SYRINGE 1 ML IVP ONE; +IV RINGERS,LACTATED 1000ML 1,000 ML IV SCH; +LIDOCAINE 1% PF 2 ML VIAL. ID PRN; +MORPHINE SULFATE 2 MG/ML VIAL. IV PRN; +ONDANSETRON PF 4 MG/2 ML VIAL. IV PRN; +PROCHLORPERAZINE 10 MG/2 ML VIAL. IV PRN; +ceFAZolin SODIUM 3 GM in IV DEXTROSE 5% 100ML 100 ML IV PRN; +fentaNYL PF VIAL 100 MCG/2 ML VIAL IV PRN
[2018-11-12 07:13] VITALS: BP 131/78
--- NOTE | 2018-11-12 08:06 | PDOC ---
Provider Note Provider Note Due to issues in the OR, surgeries had to be cancelled for today. Patient rescheduled to tomorrow 11/13/2018. FRIDA PRESCOTT MD November 12, 2018 08:06
--- NOTE | 2018-11-12 08:19 | NUR ---
PT'S SURGERY CANCELLED DUE TO AN ENVIROMENTAL ISSUE. PT INFORMED AND GIVE DC INSTRUCTIONS TO RETURN TOMORROW. PT VERBALIZED UNDERSTANDING. SL DC'D.
== END | disposition home or self-care (01) ==
LOC: SURG 06:36
PROVIDERS: ATTEND Surgery
DX: K80.20 Calculus of gallbladder without cholecystitis without obstruction (principal); Z53.8 Procedure and treatment not carried out for other reasons

== ENCOUNTER → 2018-11-13 | Day surgery (SDC) | payer MEDICARE ==
[~2018-11-13] MED LIST changes: +BUPIVACAINE-EPI 0.25%-1:200000 MPF 30 ML VIAL. ONE; +DEXAMETHASONE SOD PHOS 4 MG/ML VIAL ONE; +GLYCOPYRROLATE 1 MG/5 ML VIAL. ONE; -HYDROmorphone 2 MG/ML VIAL IV PRN; +HYDROmorphone 2 MG/ML VIAL ONE; +KETOROLAC 30 MG/ML INJ FOR OR. INJ ONE; +LIDOCAINE 2% PF 5 ML VIAL. ONE; +MIDAZOLAM HCL/PF 2 MG/2 ML VIAL. ONE; -MORPHINE SULFATE 2 MG/ML VIAL. IV PRN; +MORPHINE SULFATE 2 MG/ML VIAL. ONE; +NEOSTIGMINE METHYLSULFATE 5 MG/5 ML SYRINGE. ONE; +ONDANSETRON PF 4 MG/2 ML VIAL. ONE; +PHENYLEPHRINE in 0.9% NACL PF 1 MG/10 ML SYRINGE. IV ONE; -PROCHLORPERAZINE 10 MG/2 ML VIAL. IV PRN; +PROCHLORPERAZINE 10 MG/2 ML VIAL. ONE; +PROPOFOL 20 ML IV ONE; +ROCURONIUM 50 MG/5 ML VIAL. ONE; +SEVOFLURANE 61 TO 120 MINUTES. IH ONE; +SURGICEL HEMOSTAT 4X8 EACH. ONE; +ePHEDrine PF IN SALINE 50 MG/10 ML SYRINGE. IV ONE; +fentaNYL PF VIAL 100 MCG/2 ML VIAL ONE; +hydrALAZINE 20 MG/ML VIAL. ONE; +oxyCODONE/APAP 5/325 1 TAB TABLET ONE; +oxyCODONE/APAP 5/325 1 TAB TABLET PO ONE
--- NOTE | 2018-11-13 09:30 | PDOC4 ---
Operative Note Operative Note Date: 11/13/2018 Preoperative diagnosis: Chronic cholecystitis cholelithiasis Postoperative diagnosis: Same Procedure: Robotic-assisted laparoscopic cholecystectomy Surgeon: Clark Specimen: Gallbladder Dictation: Patient is a 67-year-old gentleman who was seen for right upper quadrant abdominal pain ultrasound showing gallstones procedure of robotic- assisted laparoscopic cholecystectomy was explained to the patient in detail all risks benefits were also discussed including bleeding infection injury to intra- abdominal contents possibly necessitating further or open operations alternatives to this procedure also discussed with the patient is seemed to understand gave both verbal and written consent to have the procedure performed. Patient was taken to the operating room placed in supine position general anesthesia was initiated once patient was sleep and intubated his abdomen was prepped and draped usual sterile fashion using ChloraPrep and area just below the umbilicus was injected with quarter percent Marcaine with epinephrine incision was ivan blade scalpel Veress needle was placed within the abdomen creating pneumoperitoneum once this was complete Promo millimeter port was placed and a da Odalys camera was placed within the abdomen which was inspected no other abdomen maladies were noted a da Odalys 8 mm port was placed in the left mid abdomen and one in the right mid abdomen dementia robot was then brought in and docked all port sites surgeon went to the robotic console using grasper and Endo Gabino scissors the adhesions of the gallbladder were taken down there is quite a bit of omental adhesions to the gallbladder. Once these were taken down a 5 mm port was then placed in the left upper quadrant a grasper was used to grasp the dome the gallbladder retracted cephalad the adhesions were continued taken down to the triangle of the gallbladder the cystic artery was clipped with hemo-lock clipped and transected the cystic duct was clipped with a Hemoclip and transected the gallbladder was taken off the liver with hook electrocautery. At this point surgeon went to the operative field using Endo Catch bag at the umbilical port the gallbladder was placed within Endo Catch bag as well as a couple of stones which fell out of the gallbladder is within removed from the umbilicus right upper quadrant was irrigated and suctioned dry hemostasis 18 be appropriate all ports removed the fascial defect at the umbilicus closed [id number] 0 Vicryl suture and skin was approximate all port sites for septic and a Monocryl Mastisol Steri-Strips and island dressings were applied. Patient was awakened and bated in the operating room taken to recovery in stable condition all sponge instrument needle counts listed as correct estimated blood loss 5 mL FRIDA PRESCOTT MD November 13, 2018 09:30
--- NOTE | 2018-11-13 09:32 | DISCH ---
DISCHARGE INSTRUCTIONS Condition on Discharge Condition on Discharge: Stable Activity After Discharge Activity Instructions for Disc: Avoid exertion Other activity instructions: no lifting more than 20 pounds for 2 weeks Diet after Discharge Diet after Discharge: Low Fat Diet Texture: Regular Liquid Texture: Thin Liquid Wound Incision Care Other wound/incision instructi: patient shower 24 hours Checks after Discharge Checks after discharge: Check blood sugar, ac/hs Contacting the DR. after DC Call your doctor for: If your condition worsens Follow-Up Follow up with: Dr. Prescott in 2 weeks Treatment/Equipment after DC Adaptive Equipment Issued: None FRIDA PRESCOTT MD November 13, 2018 09:32
[2018-11-13] MEDS: PROCHLORPERAZINE 10 MG/2 ML VIAL. IV PRN ×2 (09:40→10:06)
[2018-11-13] MEDS: fentaNYL PF VIAL 100 MCG/2 ML VIAL IV PRN ×2 (09:40→09:50)
[2018-11-13] MEDS: MORPHINE SULFATE 2 MG/ML VIAL. IV PRN ×2 (09:55→10:06)
[2018-11-13] MEDS: HYDROmorphone 2 MG/ML VIAL IV PRN ×2 (10:18→10:33)
[2018-11-13 11:10] VITALS: BP 140/78
--- NOTE | 2018-11-17 09:45 | PATHOLOGY ---
[facility] Accession Number: [id number] . 01 Material submitted: . gallbladder - GALLBLADDER . 01 Clinical history: . Gallstone, pancreatitis . 02 Diagnosis: Gallbladder, cholecystectomy: - Chronic cholecystitis, mild. - Cholesterolosis. - Cholelithiasis. (SKM:christina; 11/16/2018) QMS/11/16/2018 . 02 Electronically signed: . Ramon Riggs MD, Pathologist NPI- [id number] . 01 Gross description: . The specimen is received in formalin, labeled "Barry Headley, gallbladder". Received is a previously opened gallbladder measuring 7.1 x 2.7 x 1.3 cm in greatest dimensions displaying a pink-myers serosal surface. Opening the specimen reveals a velvety, pink-powers mucosa with mild, diffuse cholesterolosis, and a gallbladder wall thickness of 0.1 cm. A single bright yellow, nodular calculus is present, and no masses or lesions are noted grossly. Harp Regulator sections, to include the proximal margin, are submitted in cassette A1. ([facility]; 11/13/2018) QAC/QAC . 02 Pathologist provided ICD-10: K80.10, K82.4 . 02 CPT . 550448 Specimen Comment: A courtesy copy of this report has been sent to Specimen Comment: [phone], . Specimen Comment: Report sent to / DR CABRERA Performed at: 01 [facility] [address], [place] [id number] MD Mike Mcconnell MD Phone: [phone] Performed at: 02 [facility] [address], [place] [id number] MD Osman Hanson MD Phone: [phone]
== END | disposition home or self-care (01) ==
LOC: SURG 06:31
PROVIDERS: ATTEND Surgery
DX: K80.10 Calculus of gallbladder with chronic cholecystitis without obstruction (principal); K85.10 Biliary acute pancreatitis without necrosis or infection; I10 Essential (primary) hypertension; E78.5 Hyperlipidemia, unspecified; M10.9 Gout, unspecified; E11.9 Type 2 diabetes mellitus without complications; Z87.39 Personal history of other diseases of the musculoskeletal system and connective tissue; Z96.651 Presence of right artificial knee joint; Z79.84 Long term (current) use of oral hypoglycemic drugs
CPT/HCPCS: 47562; 88304; A7015; J0171; J0780; J1100; J1170; J1885; J2001; J2250; J2270; J2405; J2704; J2710; J3010; J3490; J7030; J7120; J0360; J2370

== ENCOUNTER 2019-03-06 19:50 | Emergency (ER) | payer MEDICARE ==
[~2019-03-06] VITALS: Ht 175.3 cm; Wt 127.0 kg
[~2019-03-06 19:50] MED LIST changes: -ACETAMINOPHEN 500 MG TABLET PO ONE; -BUPIVACAINE-EPI 0.25%-1:200000 MPF 30 ML VIAL. ONE; -DEXAMETHASONE SOD PHOS 4 MG/ML VIAL ONE; -GLYCOPYRROLATE 1 MG/5 ML VIAL. ONE; -HYDROmorphone 2 MG/ML VIAL ONE; +INDO50CA15 PO; -INDO50CA5 PO; -INDOCYANINE GREEN 2.5 MG in TOTAL VOLUME SYRINGE 1 ML IVP ONE; -IV RINGERS,LACTATED 1000ML 1,000 ML IV SCH; -KETOROLAC 30 MG/ML INJ FOR OR. INJ ONE; -LIDOCAINE 1% PF 2 ML VIAL. ID PRN; -LIDOCAINE 2% PF 5 ML VIAL. ONE; -MIDAZOLAM HCL/PF 2 MG/2 ML VIAL. ONE; -MORPHINE SULFATE 2 MG/ML VIAL. ONE; -NEOSTIGMINE METHYLSULFATE 5 MG/5 ML SYRINGE. ONE; -ONDANSETRON PF 4 MG/2 ML VIAL. IV PRN; -ONDANSETRON PF 4 MG/2 ML VIAL. ONE; -PHENYLEPHRINE in 0.9% NACL PF 1 MG/10 ML SYRINGE. IV ONE; -PROCHLORPERAZINE 10 MG/2 ML VIAL. ONE; -PROPOFOL 20 ML IV ONE; -ROCURONIUM 50 MG/5 ML VIAL. ONE; -SEVOFLURANE 61 TO 120 MINUTES. IH ONE; -SURGICEL HEMOSTAT 4X8 EACH. ONE; -ceFAZolin SODIUM 3 GM in IV DEXTROSE 5% 100ML 100 ML IV PRN; -ePHEDrine PF IN SALINE 50 MG/10 ML SYRINGE. IV ONE; -fentaNYL PF VIAL 100 MCG/2 ML VIAL IV PRN; -fentaNYL PF VIAL 100 MCG/2 ML VIAL ONE; -hydrALAZINE 20 MG/ML VIAL. ONE; -oxyCODONE/APAP 5/325 1 TAB TABLET ONE; -oxyCODONE/APAP 5/325 1 TAB TABLET PO ONE
[2019-03-06 21:09] LABS: BASO % 0 % (0-3); EOS # 0.2 x10^3/uL (0.0-0.7); EOS % 2 % (0-3); HEMATOCRIT 41.9 % (39.0-53.0); LYMPH % 25 % (24-48); MEAN CORPUSCULAR HEMOGLOBIN 29 pg (25-35); MEAN CORPUSCULAR HGB CONC 33 g/dL (31-37); MEAN CORPUSCULAR VOLUME 87 fL (79-100); MONO % 12 % (0-9); NEUT % 61 % (31-73); PLATELET COUNT 219 x10^3/uL (140-400); RED CELL DISTRIBUTION WIDTH 14.3 % (11.5-14.5); WHITE BLOOD COUNT 8.2 x10^3/uL (4.0-11.0)
[2019-03-06] MEDS ORDERED: ONDANSETRON PF 4 MG/2 ML VIAL. IV ONE (21:15)
[2019-03-06] MEDS ORDERED: IV NORMAL SALINE 1000ML BAG 1,000 ML IV ONE (21:15)
[2019-03-06] MEDS ORDERED: fentaNYL PF VIAL 100 MCG/2 ML VIAL IV ONE (21:15)
[2019-03-06 21:18] LABS: CREATININE 1.2 mg/dL (0.7-1.3); GFR 72.6; POTASSIUM 3.5 mmol/L (3.5-5.1)
[2019-03-06 21:23] LABS: ALBUMIN 3.4 g/dL (3.4-5.0); ALBUMIN/GLOBULIN RATIO 0.9 (1.0-1.7); MAGNESIUM 1.5 mg/dL (1.8-2.4); TOTAL BILIRUBIN 0.4 mg/dL (0.2-1.0); TOTAL PROTEIN 7.4 g/dL (6.4-8.2)
[2019-03-06] MEDS ORDERED: CONTRAST GIVEN. MC PRN (21:45)
[2019-03-06] MEDS ORDERED: IOHEXOL 300 MG/ML 100ML VIAL. IV ONE (21:45)
--- NOTE | 2019-03-06 22:18 | RAD ---
CT scan of the abdomen and pelvis with contrast 03/06/2019 CLINICAL HISTORY: Left flank pain and dysuria for 2 weeks TECHNIQUE: After the intravenous ministration 75 cc of Omnipaque 300 only, contiguous, 5 mm axial sections were obtained through the abdomen and pelvis. One or more of the following individualized dose reduction techniques were utilized for this study: 1. Automated exposure control. 2. Adjustment of the mA and/or kV according to patient size. 3. Use of iterative reconstruction technique. FINDINGS: Comparison study is dated 10/17/2018. The absence of oral contrast limits the study for the detection of bowel pathology. Images through the lung bases demonstrate minimal dependent subsegmental atelectasis bilaterally. The liver, spleen, pancreas, adrenal glands and kidneys are within normal limits. Atherosclerotic calcification abdominal aorta is seen. The abdominal aorta tapers normally. The gallbladder is not visualized consistent with a cholecystectomy. No free fluid or free air is within the abdomen. Mildly dilated jejunal loops are seen within the left upper quadrant of the abdomen without definite evidence of bowel obstruction. The appendix is well-visualized and is within normal limits. Images through the pelvis demonstrate the urinary bladder distended with urine. The prostate gland is enlarged likely related to BPH. No distal ureteral calculus is seen. No free fluid is noted. Very mild S-shaped curvature of the thoracolumbar spine is seen. Degenerative changes are seen involving lower thoracic and throughout the lumbar spine along with both hips. IMPRESSION: No acute abnormality is seen. Electronically signed by: North Guzman MD (03/06/2019 10:15 PM) [facility]
[2019-03-06 22:26] LABS: BILIRUBIN,URINE NEGATIVE (NEG); CLARITY,URINE CLEAR; COLOR,URINE YELLOW; NITRITE,URINE NEGATIVE (NEG); PROTEIN,URINE NEGATIVE (NEG-TRACE)
[2019-03-06 22:30] VITALS: BP 138/76
[2019-03-06 22:35] LABS: BACTERIA,URINE 0 /HPF (0-FEW); RBC,URINE 0 /HPF (0-2); SQUAMOUS EPITHELIAL CELL,UR FEW /LPF; WBC,URINE OCC /HPF (0-4)
--- NOTE | 2019-03-06 22:35 | PHYS DOC ---
Past Medical History Past Medical History: Diabetes-Type II, High Cholesterol, Hypertension Additional Past Medical Histor: OBESITY, GOUT Past Surgical History: Knee Replacement Additional Past Surgical Histo: RIGHT KNEE, NERVE SX IN BILAT ELBOWS Alcohol Use: None Drug Use: None Adult General Chief Complaint Chief Complaint: FLANK PAIN HPI HPI Patient is a 68-year-old male who's had a history of cholecystectomy presents with a several day history of left flank pain. He states the pain is severe and is made worse whenever he moves. He denies any fever chills or sweats. He denies any gross hematuria. He denies any dysuria. He states this pain feels similar to when he had gallstones. He's had no nausea or vomiting. He states he has just been very aggravated with constant pain. He denies any traumatic injury to the area.[] Review of Systems Review of Systems Constitutional: Denies fever or chills [] Eyes: Denies change in visual acuity, redness, or eye pain [] HENT: Denies nasal congestion or sore throat [] Respiratory: Denies cough or shortness of breath [] Cardiovascular: No additional information not addressed in HPI [] GI: Denies abdominal pain, nausea, vomiting, bloody stools or diarrhea [] : Denies dysuria or hematuria [] Musculoskeletal: Reports left flank pain[] Integument: Denies rash or skin lesions [] Neurologic: Denies headache, focal weakness or sensory changes [] Endocrine: Denies polyuria or polydipsia [] All other systems were reviewed and found to be within normal limits, except as documented in this note. Current Medications Current Medications Current Medications Medications (Trade) Dose Ordered Sig/Antonia Start Time Stop Time Status Last Admin Dose Admin Fentanyl Citrate (Fentanyl 2ml Vial) 50 mcg 1X ONCE 03/06/19 21:15 03/06/19 21:16 DC 03/06/19 21:21 50 MCG Info (CONTRAST GIVEN -- Rx MONITORING) 1 each PRN DAILY PRN 03/06/19 21:45 03/08/19 21:44 Iohexol (Omnipaque 300 Mg/ml) 75 ml 1X ONCE 03/06/19 21:45 03/06/19 21:46 DC 03/06/19 21:54 75 ML Ondansetron HCl (Zofran) 4 mg 1X ONCE 03/06/19 21:15 03/06/19 21:16 DC 03/06/19 21:21 4 MG Sodium Chloride 1,000 ml @ 1,000 mls/hr 1X ONCE 03/06/19 21:15 03/06/19 22:14 DC 03/06/19 21:21 1,000 MLS/HR Allergies Allergies Allergies Coded Allergies Type Severity Reaction Last Updated Verified No Known Drug Allergies 11/12/18 No Physical Exam Physical Exam Constitutional: Well developed, well nourished, mild distress, non-toxic appearance. [] HENT: Normocephalic, atraumatic, bilateral external ears normal, oropharynx moist, no oral exudates, nose normal. [] Eyes: PERRLA, EOMI, conjunctiva normal, no discharge. [] Neck: Normal range of motion, no tenderness, supple, no stridor. [] Cardiovascular:Heart rate regular rhythm, no murmur [] Lungs & Thorax: Bilateral breath sounds clear to auscultation [] Abdomen: Obese, Bowel sounds normal, soft, no tenderness, no masses, no pulsatile masses. [] Skin: Warm, dry, no erythema, no rash. [] Back: No tenderness, no CVA tenderness. [] Extremities: No tenderness, no cyanosis, no clubbing, ROM intact, no edema. [] Neurologic: Alert and oriented X 3, normal motor function, normal sensory function, no focal deficits noted. [] Psychologic: Depressed affect. [] Current Patient Data Vital Signs Vital Signs Date Time Temp Pulse Resp B/P (MAP) Pulse Ox O2 Delivery O2 Flow Rate FiO2 03/06/19 22:30 83 14 138/76 (96) 96 Room Air 03/06/19 20:19 98.3 98.3 Lab Values Laboratory Tests Test 03/06/19 20:40 03/06/19 22:10 White Blood Count 8.2 x10^3/uL (4.0-11.0) Red Blood Count 4.80 x10^6/uL (4.30-5.70) Hemoglobin 14.0 g/dL (13.0-17.5) Hematocrit 41.9 % (39.0-53.0) Mean Corpuscular Volume 87 fL (79-100) Mean Corpuscular Hemoglobin 29 pg (25-35) Mean Corpuscular Hemoglobin Concent 33 g/dL (31-37) Red Cell Distribution Width 14.3 % (11.5-14.5) Platelet Count 219 x10^3/uL (140-400) Neutrophils (%) (Auto) 61 % (31-73) Lymphocytes (%) (Auto) 25 % (24-48) Monocytes (%) (Auto) 12 % (0-9) H Eosinophils (%) (Auto) 2 % (0-3) Basophils (%) (Auto) 0 % (0-3) Neutrophils # (Auto) 5.0 x10^3/uL (1.8-7.7) Lymphocytes # (Auto) 2.0 x10^3/uL (1.0-4.8) Monocytes # (Auto) 1.0 x10^3/uL (0.0-1.1) Eosinophils # (Auto) 0.2 x10^3/uL (0.0-0.7) Basophils # (Auto) 0.0 x10^3/uL (0.0-0.2) Sodium Level 141 mmol/L (136-145) Potassium Level 3.5 mmol/L (3.5-5.1) Chloride Level 103 mmol/L (98-107) Carbon Dioxide Level 26 mmol/L (21-32) Anion Gap 12 (6-14) Blood Urea Nitrogen 21 mg/dL (8-26) Creatinine 1.2 mg/dL (0.7-1.3) Estimated GFR (Cockcroft-Gault) 72.6 BUN/Creatinine Ratio 18 (6-20) Glucose Level 143 mg/dL (70-99) H Calcium Level 9.0 mg/dL (8.5-10.1) Magnesium Level 1.5 mg/dL (1.8-2.4) L Total Bilirubin 0.4 mg/dL (0.2-1.0) Aspartate Amino Transferase (AST) 15 U/L (15-37) Alanine Aminotransferase (ALT) 26 U/L (16-63) Alkaline Phosphatase 92 U/L (46-116) Troponin I Quantitative < 0.017 ng/mL (0.000-0.055) Total Protein 7.4 g/dL (6.4-8.2) Albumin 3.4 g/dL (3.4-5.0) Albumin/Globulin Ratio 0.9 (1.0-1.7) L Lipase 310 U/L (73-393) Urine Collection Type Unknown Urine Color Yellow Urine Clarity Clear Urine pH 5.0 Urine Specific [place] 1.020 Urine Protein Negative mg/dL (NEG-TRACE) Urine Glucose (UA) Negative mg/dL (NEG) Urine Ketones (Stick) Negative mg/dL (NEG) Urine Blood Negative (NEG) Urine Nitrite Negative (NEG) Urine Bilirubin Negative (NEG) Urine Urobilinogen Dipstick 1.0 mg/dL (0.2 mg/dL) Urine Leukocyte Esterase Negative (NEG) Urine RBC 0 /HPF (0-2) Urine WBC Occ /HPF (0-4) Urine Squamous Epithelial Cells Few /LPF Urine Bacteria 0 /HPF (0-FEW) Laboratory Tests 03/06/19 20:40 Laboratory Tests 03/06/19 20:40 EKG EKG [] Radiology/Procedures Radiology/Procedures [] Impressions: REASON: abd pain, LEFT FLANK PAIN, DYSURIA, X 2 WEEKS, OMNI 300, 75ml PROCEDURE: CT ABD PELV W/ IV CONTRST ONLY CT scan of the abdomen and pelvis with contrast 03/06/2019 CLINICAL HISTORY: Left flank pain and dysuria for 2 weeks TECHNIQUE: After the intravenous ministration 75 cc of Omnipaque 300 only, contiguous, 5 mm axial sections were obtained through the abdomen and pelvis. One or more of the following individualized dose reduction techniques were utilized for this study: 1. Automated exposure control. 2. Adjustment of the mA and/or kV according to patient size. 3. Use of iterative reconstruction technique. FINDINGS: Comparison study is dated 10/17/2018. The absence of oral contrast limits the study for the detection of bowel pathology. Images through the lung bases demonstrate minimal dependent subsegmental atelectasis bilaterally. The liver, spleen, pancreas, adrenal glands and kidneys are within normal limits. Atherosclerotic calcification abdominal aorta is seen. The abdominal aorta tapers normally. The gallbladder is not visualized consistent with a cholecystectomy. No free fluid or free air is within the abdomen. Mildly dilated jejunal loops are seen within the left upper quadrant of the abdomen without definite evidence of bowel obstruction. The appendix is well-visualized and is within normal limits. Images through the pelvis demonstrate the urinary bladder distended with urine. The prostate gland is enlarged likely related to BPH. No distal ureteral calculus is seen. No free fluid is noted. Very mild S-shaped curvature of the thoracolumbar spine is seen. Degenerative changes are seen involving lower thoracic and throughout the lumbar spine along with both hips. IMPRESSION: No acute abnormality is seen. Course & Med Decision Making Course & Med Decision Making Pertinent Labs and Imaging studies reviewed. (See chart for details) [ED course: Evaluation reveals a 68-year-old male with left flank pain. His workup was unremarkable. CT scan all lab work and urinalysis were negative. I did give him some IV fluids and fentanyl which helped his symptoms however he remained very frustrated that we could not give him a definitive answer for his pain. I suggested that this could be musculoskeletal however he very much resisted the idea that this had anything to do with mechanical back pain. Nonetheless, I feel the patient is safe for discharge home with outpatient follow-up.] Dragon Disclaimer Dragon Disclaimer This electronic medical record was generated, in whole or in part, using a voice recognition dictation system. Departure Departure Impression: Primary Impression: Left flank pain, chronic Disposition: 01 HOME, SELF-CARE Condition: STABLE Referrals: DENIZ CABRERA MD (PCP) Patient Instructions: Flank Pain Additional Instructions: Follow with your primary care physician this week for recheck. Return to the emergency department with any new or concerning symptoms. Scripts Methocarbamol (ROBAXIN-750) 750 Mg Tablet 1 TAB PO Q8HRS PRN for back pain, #30 TAB Prov: ISHAAN MEJIA DO 03/06/19 ISHAAN MEJIA DO Mar 06, 2019 22:35
[2019-03-06] MEDS ORDERED: METH-38 PO (22:44)
--- NOTE | 2019-03-08 07:29 | EKG ---
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
== END 2019-03-06 22:58 | disposition home or self-care (01) ==
LOC: ER 19:50
DX: G89.29 Other chronic pain (principal); R10.9 Unspecified abdominal pain; E11.9 Type 2 diabetes mellitus without complications; E78.00 Pure hypercholesterolemia, unspecified; I10 Essential (primary) hypertension; E66.9 Obesity, unspecified; Z68.41 Body mass index [BMI] 40.0-44.9, adult; Z96.659 Presence of unspecified artificial knee joint
CPT/HCPCS: 36415; 74177; 80053; 81001; 83690; 83735; 84484; 85025; 93005; 96374; 96375; 99285; J2405; J3010; J7030; Q9967

== ENCOUNTER → 2019-05-11 | Outpatient (CLI) | payer MEDICARE ==
[~2019-05-11] MED LIST changes: +METH-38 PO
--- NOTE | 2019-05-11 17:16 | KCIC ---
Examination: CERVICAL SPINE 5V History: Headaches, dizziness, stiff neck, paresthesias involving both hands Comparison/Correlation: None Findings: Total of 6 images of cervical spine were obtained including oblique, frontal, and lateral views. Moderate C3-4 disc space narrowing is present. Mild disc space narrowing at multiple levels of the mid to lower cervical spine noted. No fracture or bone infection. Vertebral body heights are adequate. Spurring involving the anterior aspect of C2-C3 and C4-5 noted. Mass effect on prevertebral soft tissues at these levels noted. No soft tissue swelling. Neural foraminal narrowing bilaterally at multiple levels of the mid cervical spine noted. No fracture or bone destruction. Impression: Degenerative changes. Electronically signed by: Melvin Moralez MD (05/11/2019 5:13 PM) [facility]
== END | disposition home or self-care (01) ==
LOC: KCIC 15:57
PROVIDERS: ATTEND Family Medicine
DX: M47.812 Spondylosis without myelopathy or radiculopathy, cervical region (principal); M48.02 Spinal stenosis, cervical region; M48.8X2 Other specified spondylopathies, cervical region
CPT/HCPCS: 72050

== ENCOUNTER → 2019-05-18 | Outpatient (CLI) | payer MEDICARE ==
--- NOTE | 2019-05-18 16:33 | KCIC ---
EXAMINATION: Magnetic resonance imaging (MRI) of the cervical spine without contrast 05/18/2019 2:45 PM HISTORY: Cervical stenosis. Headaches with neck pain and limited range of motion. Bilateral upper extremity numbness. TECHNIQUE: Multiplanar multi-weighted MRI of the cervical spine was performed without intravenous contrast using the standard cervical spine protocol. Contrast information: None administered COMPARISON: None available. FINDINGS: There is minimal retrolisthesis of C3 on C4. Straightening of the normal cervical lordosis. Mild anterior marginal osteophytosis noted at C3-C4, C5-C6 and C6-C7. There is no significant marrow edema. Modic type II endplate degenerative changes are identified at C3-C4 and C5-C6. No compression deformity is identified. There is congenital narrowing of the spinal canal secondary to shortened pedicles. There is cord signal alteration identified at C6-C7 which may represent cord edema versus myelomalacia. Posterior fossa is normal in appearance. Vertebral artery flow voids are maintained. Craniocervical junction is intact. Atlantoaxial articulation is normal. C2-C3: There is mild disc bulge. Mild facet arthropathy. No neuroforaminal or spinal canal stenosis. C3-C4: There is a posterior disc osteophyte complex with central disc protrusion. There is moderate facet arthropathy with mild uncovertebral joint disease. Moderate bilateral neuroforaminal stenosis. Mild spinal canal stenosis without deformity of the cord or cord signal alteration. C4-C5: There is a posterior disc osteophyte complex. There is mild to moderate facet arthropathy. Mild uncovertebral joint disease. Moderate bilateral neuroforaminal stenosis. Mild spinal canal stenosis without deformity of the cord or cord signal alteration. C5-C6: There is a posterior disc osteophyte complex with right central disc extrusion. There is moderate facet and uncovertebral joint disease. There is severe right and moderate left neuroforaminal stenosis. There is moderate spinal canal stenosis with deformity of the right hemicord without cord signal alteration. C6-C7: There is a posterior disc osteophyte complex with central disc extrusion. There is severe spinal canal stenosis, exacerbated by ligamentum flavum infolding. Mild facet and uncovertebral joint disease with moderate bilateral neuroforaminal stenosis. There is cord signal alteration suggestive of cord edema are myomalacia. C7-T1: Disc is normal in configuration. No neuroforaminal or spinal canal stenosis. IMPRESSION: Moderate to advanced degenerative changes of the cervical spine, as described in detail above. Findings are most severe at C6-C7 with associated cord signal alteration suggestive of cord edema or myelomalacia. Electronically signed by: Roseanne Ramirez MD (05/18/2019 4:30 PM) [email or web address]
== END | disposition home or self-care (01) ==
LOC: KCIC MRI 14:41
PROVIDERS: ATTEND Family Medicine
DX: M47.812 Spondylosis without myelopathy or radiculopathy, cervical region (principal); M48.02 Spinal stenosis, cervical region; M50.21 Other cervical disc displacement, high cervical region; M25.78 Osteophyte, vertebrae; M12.88 Other specific arthropathies, not elsewhere classified, other specified site
CPT/HCPCS: 72141

== ENCOUNTER → 2019-07-05 | Outpatient (CLI) | payer MEDICARE ==
[2019-06-14 15:00] VITALS: BP 133/80
[~2019-07-05] MED LIST changes: +CITA20TA9 PO; +DOCU-153 PO; +METH750T2 PO
== END | disposition home or self-care (01) ==
LOC: SURGPAT 09:14
PROVIDERS: ATTEND Neurological Surgery
DX: Z01.818 Encounter for other preprocedural examination (principal); M48.02 Spinal stenosis, cervical region
CPT/HCPCS: 36415; 87641

== ENCOUNTER → 2019-07-06 | Outpatient (CLI) | payer MEDICARE ==
[2019-06-14 15:00] VITALS: BP 133/80
--- NOTE | 2019-07-06 11:51 | RAD ---
LUMBAR SPINE WO CONTRAST History: Radiculopathy. Technique: Multiplanar, multi sequential MR imaging was performed of the lumbar spine. Comparison: CT abdomen pelvis March 06, 2019 Findings: Transitional lumbar sacral anatomy with lumbarization of S1. For the purposes of this report L5-S1 is denoted on axial T2 series 7 image 24. Normal alignment. Normal vertebral body height. No fracture. Congenitally small spinal canal. No pathologic marrow replacing process. Conus terminates at the normal location. No evidence of nerve root clumping. L1-L2: No canal or neuroforaminal narrowing. L2-L3: Small posterior disc bulge. Mild facet arthropathy. Minimal canal narrowing. Right superimposed foraminal disc protrusion. Mild right neuroforaminal narrowing. No left neural foraminal narrowing. L3-L4: Small posterior disc bulge. Mild facet arthropathy. Mild canal narrowing. No neuroforaminal narrowing. L4-L5: Small posterior disc bulge with central disc protrusion. Moderate to severe canal narrowing. Moderate facet arthropathy. No neuroforaminal narrowing. L5-S1: Small posterior disc bulge. Moderate facet arthropathy. No canal narrowing. Mild right neuroforaminal narrowing. No left neuroforaminal narrowing. Impression: 1. Multilevel lumbar spondylosis with congenitally small spinal canal contributing to multilevel canal and neuroforaminal narrowing. 2. Moderate to severe L4-L5 canal narrowing Electronically signed by: Nima Ponce DO (07/06/2019 11:49 AM) [facility]
== END | disposition home or self-care (01) ==
LOC: MRI 08:21
PROVIDERS: ATTEND Family Medicine
DX: M47.26 Other spondylosis with radiculopathy, lumbar region (principal); M51.17 Intervertebral disc disorders with radiculopathy, lumbosacral region; M48.061 Spinal stenosis, lumbar region without neurogenic claudication
CPT/HCPCS: 72148

== ENCOUNTER 2019-07-08 07:15 | Inpatient (IN) | payer MEDICARE ==
--- NOTE | 2019-07-07 16:28 | HP ---
ADMIT DATE: 07/08/2018 HISTORY OF PRESENT ILLNESS: The patient is a pleasant 68-year-old man who has been having difficulty with neck pain and balance issues as well as numbness in his arms that radiates from the neck down to his shoulders. The problem has been present for 3-4 months. He also admits some lower back pain. He was seen in the hospital in May and was released with plans to come back for cervical surgery. PAST MEDICAL AND SURGICAL HISTORY: Hypertension, hyperlipidemia, diabetes, prostate cancer, gouty arthritis, chronic lower back pain, osteoarthritis, status post right total knee arthroplasty, CVA. He has also had a cholecystectomy. FAMILY HISTORY: Cancer. 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 ALLERGIES: No known drug allergies. CURRENT MEDICATIONS: See the MRAD. REVIEW OF SYSTEMS: A 12-point review of systems was performed and is noncontributory except that mentioned above. PHYSICAL EXAMINATION: GENERAL: Alert, oriented. Moves all extremities voluntarily. 4+/5 muscle strength. Reflexes were present and symmetric with exaggerated knee and ankle jerks. He had equal perception of touch and sensation bilaterally. No significant tenderness of the cervical spine area. He can walk on toes and heels. He had some difficulty trying to walk in a straight line. Decreased range of motion of the cervical spine. IMAGING: I reviewed a cervical MRI scan, which revealed multilevel degenerative disc disease with stenosis, most significant at C5-C6 and C6-C7. ASSESSMENT AND PLAN: We spoke about anterior cervical discectomy and fusion at C5-C6 and C6-C7. He has been cleared medically. We spoke about the risk of surgery as well as the expected postoperative course. He understands. We are making arrangements. GLYNN MONTE MD DR: RON/robert JOB#: [id number] / [id number] HOWIE
[~2019-07-08] VITALS: Ht 175.3 cm; Wt 129.0 kg
[2019-07-08] VITALS (8 sets, daily range): BP systolic 120–144; BP diastolic 76–89
[2019-07-08] MEDS: POTASSIUM CL 20MEQ-0.45% NACL 1,000 ML IV SCH ×2 (04:00→16:14)
[~2019-07-08 07:15] MED LIST changes: +BACITRACIN 50,000 UNIT in IV NORMAL SALINE 1000ML BAG 1,000 ML IRR ONE; -DOCU-153 PO; +HYDROmorphone 2 MG/ML VIAL IV PRN; -METH750T2 PO; +MORPHINE SULFATE 2 MG/ML VIAL. IV PRN; +fentaNYL PF VIAL 100 MCG/2 ML VIAL IV PRN
[2019-07-08] MEDS ORDERED: SUCCINYLCHOLINE 200 MG/10 ML VIAL. ONE (07:50)
[2019-07-08] MEDS ORDERED: ROCURONIUM 50 MG/5 ML VIAL. ONE (07:50)
[2019-07-08] MEDS ORDERED: LIDOCAINE 2% PF 5 ML VIAL. ONE (07:50)
[2019-07-08] MEDS ORDERED: fentaNYL PF VIAL 100 MCG/2 ML VIAL ONE (07:50)
[2019-07-08] MEDS ORDERED: PROPOFOL 20 ML IV ONE (07:50)
[2019-07-08] MEDS ORDERED: REMIFENTANIL 2 MG VIAL. IV ONE (07:51)
[2019-07-08] MEDS ORDERED: PROPOFOL 50 ML IV ONE ×3 (07:54→11:48)
[2019-07-08] MEDS: IV RINGERS,LACTATED 1000ML 1,000 ML IV SCH ×2 (07:57→13:25)
[2019-07-08] MEDS ORDERED: THROMBIN TOPICAL 20,000 UNIT SPRAY.SYRN KIT TP ONE (08:08)
[2019-07-08] MEDS ORDERED: BUPIVACAINE-EPI 0.5%-1:200000 MPF 30 ML VIAL. ONE (08:08)
[2019-07-08] MEDS ORDERED: GELATIN SPONGE SIZE 100. ONE (08:08)
[2019-07-08] MEDS ORDERED: INSULIN LISPRO 100 UNIT/ML 3ML VIAL for OP,RR ONLY. SQ PRN (08:15)
[2019-07-08] MEDS ORDERED: DEXAMETHASONE SOD PHOS 20 MG/5 ML VIAL. ONE (09:04)
[2019-07-08] MEDS ORDERED: DESFLURANE 61 TO 120 MINUTES IH ONE (09:04)
[2019-07-08] MEDS ORDERED: PHENYLEPHRINE in 0.9% NACL PF 1 MG/10 ML SYRINGE. IV ONE (09:14)
[2019-07-08] MEDS ORDERED: PHENYLEPHRINE 10 MG/ML VIAL. ONE (09:44)
[2019-07-08] MEDS ORDERED: fentaNYL PF VIAL 100 MCG/2 ML VIAL IVP PRN (10:00)
[2019-07-08] MEDS ORDERED: IV DEXTROSE 5% 250 ML BAG. IV PRN (10:00)
[2019-07-08] MEDS ORDERED: ACETAMINOPHEN 325 MG TABLET. PO PRN (10:00)
[2019-07-08] MEDS ORDERED: DEXTROSE 50% 25 GM / 50ML DISP.SYRIN. IV PRN (10:00)
[2019-07-08] MEDS ORDERED: METHOCARBAMOL 750 MG TABLET PO PRN (10:00)
[2019-07-08] MEDS ORDERED: MAGNESIUM HYDROXIDE 2,400 MG/30 ML ORAL.SUSP. PO PRN (10:00)
[2019-07-08] MEDS ORDERED: oxyCODONE/APAP 5/325 1 TAB TABLET PO PRN (10:00)
[2019-07-08] MEDS ORDERED: diphenhydrAMINE HCL 25 MG CAPSULE PO PRN (10:00)
[2019-07-08] MEDS ORDERED: CALCIUM CARBONATE 500 MG TAB.CHEW PO PRN (10:00)
[2019-07-08] MEDS ORDERED: MAG HYDROX/ALUMINUM HYD/SIMETH 30 ML ORAL.SUSP PO PRN (10:00)
[2019-07-08] MEDS ORDERED: 0.9 % SODIUM CHLORIDE 10 ML DISP.SYRIN. IV PRN (10:00)
[2019-07-08] MEDS ORDERED: ONDANSETRON PF 4 MG/2 ML VIAL. IVP PRN (10:00)
[2019-07-08] MEDS ORDERED: NALOXONE 0.4 MG/ML VIAL. IV PRN (11:00)
[2019-07-08] MEDS ORDERED: REMIFENTANIL 1 MG VIAL. IV ONE (12:19)
[2019-07-08] MEDS ORDERED: DESFLURANE > 120 MINUTES IH ONE (12:56)
[2019-07-08] MEDS: glipiZIDE ER 2.5 MG TAB.ER.24 PO SCH ×2 (13:00→16:15)
[2019-07-08] MEDS: LOSARTAN POTASSIUM 50 MG TABLET. PO SCH (13:00)
[2019-07-08] MEDS ORDERED: MORPHINE SULFATE 4 MG/ML VIAL. ONE (13:13)
[2019-07-08] MEDS ORDERED: MORPHINE SULFATE 4 MG/ML VIAL. IV ONE (13:17)
[2019-07-08] MEDS: PROCHLORPERAZINE 10 MG/2 ML VIAL. IV PRN ×2 (13:25→14:57)
[2019-07-08] MEDS: fentaNYL PF VIAL 100 MCG/2 ML VIAL IV PRN ×2 (14:00→14:56)
[2019-07-08] MEDS: hydroCHLOROthiazide 25 MG TABLET PO SCH (16:07)
[2019-07-08] MEDS: ALLOPURINOL 100 MG TABLET. PO SCH (16:07)
[2019-07-08] MEDS: CITALOPRAM 20 MG TABLET. PO SCH (16:08)
[2019-07-08] MEDS: ceFAZolin SODIUM IV Push 1 GM VIAL. IVP SCH (16:18)
[2019-07-08] MEDS: metFORMIN 500 MG TABLET PO SCH (16:52)
--- NOTE | 2019-07-08 18:31 | NUR ---
Barry is doing better. he verduzco fentanyl x2. he has good strength, motion and sensation bilateral hands. states the tingling in his bilateral little fingers is better but still there. shoulder pain is better after ice to that area. still has sore throat but is able to tolerate soft foods and water. voided 650cc padmini urine since arrival. history completed.
[2019-07-08] MEDS ORDERED: amLODIPine BESYLATE 5 MG TABLET PO SCH (21:00)
[2019-07-08] MEDS ORDERED: ATORVASTATIN CALCIUM 20 MG TABLET PO SCH (21:00)
[2019-07-08] MEDS: DOCUSATE SODIUM 100 MG CAPSULE. PO SCH (21:25)
[2019-07-08] MEDS: oxyCODONE/APAP 5/325 1 TAB TABLET PO PRN (21:26)
[2019-07-09] MEDS: ceFAZolin SODIUM IV Push 1 GM VIAL. IVP SCH ×2 (01:00→09:00)
[2019-07-09 03:00] VITALS: BP 151/88
[2019-07-09] MEDS: oxyCODONE/APAP 5/325 1 TAB TABLET PO PRN (04:13)
[2019-07-09 06:53] VITALS: BP 142/88
[2019-07-09 08:20] VITALS: BP 124/77
[2019-07-09] MEDS: hydroCHLOROthiazide 25 MG TABLET PO SCH (08:20)
[2019-07-09] MEDS: glipiZIDE ER 2.5 MG TAB.ER.24 PO SCH (08:20)
[2019-07-09] MEDS: metFORMIN 500 MG TABLET PO SCH (08:21)
[2019-07-09] MEDS: LOSARTAN POTASSIUM 50 MG TABLET. PO SCH (08:21)
[2019-07-09] MEDS: CITALOPRAM 20 MG TABLET. PO SCH (08:21)
[2019-07-09] MEDS: ALLOPURINOL 100 MG TABLET. PO SCH (08:21)
[2019-07-09] MEDS: DOCUSATE SODIUM 100 MG CAPSULE. PO SCH (08:21)
[2019-07-09] MEDS ORDERED: DOCU-153 PO (10:28)
[2019-07-09] MEDS ORDERED: METH750T2 PO (10:28)
--- NOTE | 2019-07-09 10:31 | DISCH ---
DISCHARGE INSTRUCTIONS Condition on Discharge Condition on Discharge: Stable Activity After Discharge Activity Instructions for Disc: Activity as tolerated, Avoid exertion Other activity instructions: no driving for a week Bathing Instructions: Shower-keep dressing dry Lifting Instructions after Dis: No heavy lifting, No pulling or pushing, Do not lift >10 pounds Driving Instructions after Dis: Do not drive, Other, see below Weight Bearing Status after Di: As tolerated Diet after Discharge Diet after Discharge: Diabetic No Calorie Level Additional Diet Restrictions: resume home diet Diet Texture: Regular Liquid Texture: Thin Liquid Swallowing Supervision: None needed Wound Incision Care Wound/Incision Care: Ice to area for comfort Other wound/incision instructi: may remove dressing in 48 hours if dry then may shower, no soaking Checks after Discharge Checks after discharge: Check blood press - daily, Check blood sugar, ac/hs Contacting the DRRenzo after DC Call your doctor for: Concerns you may have Follow-Up Follow up with: Dr. Monte's nurse in 2 weeks [phone] Treatment/Equipment after DC Adaptive Equipment Issued: None GLYNN MONTE MD Jul 09, 2019 10:31
--- NOTE | 2019-07-09 10:41 | PDOC ---
PROGRESS NOTES Subjective Subjective POD#1 S/P ACDF C5-6, C6-7 up in chair neck is sore improvement in numbness in hands sore throat Objective Objective Vital Signs Date Time Temp Pulse Resp B/P (MAP) Pulse Ox O2 Delivery O2 Flow Rate FiO2 07/09/19 08:21 91 124/77 07/09/19 06:53 97.7 20 95 Room Air 97.7 07/09/19 03:00 2.0 Intake and Output 07/09/19 07:00 Intake Total 4110 ml Output Total 1695 ml Balance 2415 ml Intake Oral 1160 ml IV Total 2950 ml Output Urine Total 1670 ml Estimated Blood Loss 25 ml # Voids 1 Physical Exam General: Alert, Oriented X3, Cooperative, Other (voice slightly hoarse) HEENT: Other (soft collar) Neuro: Other (LUCERO) Skin: Other (dressing C,D,I,flat) Plan Plan of Care dc home today f/u 2 weeks Comment Review of Relevant I have reviewed the following items ethan (where applicable) has been applied. Labs Laboratory Tests Test 07/08/19 07:51 07/08/19 14:19 07/08/19 16:51 Glucose (Fingerstick) 120 mg/dL (70-99) 129 mg/dL (70-99) 132 mg/dL (70-99) Laboratory Tests Test 07/08/19 14:19 07/08/19 16:51 Glucose (Fingerstick) 129 mg/dL (70-99) 132 mg/dL (70-99) Medications Current Medications Bacitracin 61510 unit/Sodium Chloride 1,000 ml @ 1,000 mls/hr 1X ONCE IRR Last administered on 07/08/19at 09:37; Start 07/08/19 at 06:00; Stop 07/08/19 at 06:59; Status DC Fentanyl Citrate (Fentanyl 2ml Vial) 25 mcg PRN Q5MIN PRN IV MILD PAIN 1-3 Last administered on 07/08/19at 18:24; Start 07/08/19 at 07:00; Stop 07/09/19 at 06:59; Status DC Fentanyl Citrate (Fentanyl 2ml Vial) 50 mcg PRN Q5MIN PRN IV MODERATE TO SEVERE PAIN Last administered on 07/08/19at 14:56; Start 07/08/19 at 07:00; Stop 07/09/19 at 06:59; Status DC Morphine Sulfate (Morphine Sulfate) 1 mg PRN Q10MIN PRN IV SEVERE PAIN 7-10; Start 07/08/19 at 07:00; Stop 07/09/19 at 06:59; Status DC Ringer's Solution 1,000 ml @ 30 mls/hr Q24H IV Last administered on 07/08/19at 13:25; Start 07/08/19 at 07:00; Stop 07/08/19 at 18:59; Status DC Hydromorphone HCl (Dilaudid) 0.5 mg PRN Q10MIN PRN IV SEV PAIN, Second choice; Start 07/08/19 at 07:00; Stop 07/09/19 at 06:59; Status DC Prochlorperazine Edisylate (Compazine) 5 mg PACU PRN PRN IV NAUSEA, MRX1 Last administered on 07/08/19at 14:57; Start 07/08/19 at 07:00; Stop 07/09/19 at 06:59; Status DC Cefazolin Sodium/ Dextrose 50 ml @ 100 mls/hr 1X PREOP PRN IV PRIOR TO PROCEDURE Last administered on 07/08/19at 09:17; Start 07/08/19 at 06:00; Stop 07/08 at 18:00; Status DC Propofol 20 ml @ As Directed STK-MED ONCE IV ; Start 07/08/19 at 07:50; Stop 07/08/19 at 07:50; Status DC Lidocaine HCl (Lidocaine Pf 2% Vial) 5 ml STK-MED ONCE .ROUTE ; Start 07/08/19 at 07:50; Stop 07/08/19 at 07:50; Status DC Fentanyl Citrate (Fentanyl 2ml Vial) 100 mcg STK-MED ONCE .ROUTE ; Start 07/08/19 at 07:50; Stop 07/08/19 at 07:50; Status DC Succinylcholine Chloride (Anectine) 200 mg STK-MED ONCE .ROUTE ; Start 07/08/19 at 07:50; Stop 07/08/19 at 07:50; Status DC Rocuronium [place] (Zemuron) 50 mg STK-MED ONCE .ROUTE ; Start 07/08/19 at 07:50; Stop 07/08/19 at 07:51; Status DC Remifentanil HCl (Ultiva) 2 mg STK-MED ONCE IV ; Start 07/08/19 at 07:51; Stop 07/08/19 at 07:51; Status DC Propofol 50 ml @ As Directed STK-MED ONCE IV ; Start 07/08/19 at 07:54; Stop 07/08/19 at 07:55; Status DC Gelatin (Gelfoam Size 100) 1 each STK-MED ONCE .ROUTE Last administered on 07/08/19at 09:37; Start 07/08/19 at 08:08; Stop 07/08/19 at 08:08; Status DC Bupivacaine HCl/ Epinephrine Bitart (Sensorcain-Epi 0.5%-1:481590 Mpf) 30 ml STK-MED ONCE .ROUTE Last administered on 07/08/19at 09:37; Start 07/08/19 at 08:08; Stop 07/08/19 at 08:08; Status DC Thrombin 20,000 unit STK-MED ONCE TP Last administered on 07/08/19at 09:37; Start 07/08/19 at 08:08; Stop 07/08/19 at 08:08; Status DC Insulin Human Lispro (HumaLOG VIAL for OP,RR ONLY) 0-10 units PRN Q1HR PRN SQ PER PROTOCOL Last administered on 07/08/19at 08:13; Start 07/08/19 at 08:15; Stop 07/09/19 at 08:14; Status DC Dexamethasone Sodium Phosphate (Decadron) 20 mg STK-MED ONCE .ROUTE ; Start 07/08/19 at 09:04; Stop 07/08/19 at 09:04; Status DC Desflurane (Suprane) 60 ml STK-MED ONCE IH ; Start 07/08/19 at 09:04; Stop 07/08/19 at 09:04; Status DC Phenylephrine HCl (PHENYLEPHRINE in 0.9% NACL PF) 1 mg STK-MED ONCE IV ; Start 07/08/19 at 09:14; Stop 07/08/19 at 09:14; Status DC Propofol 50 ml @ As Directed STK-MED ONCE IV ; Start 07/08/19 at 09:42; Stop 07/08/19 at 09:42; Status DC Phenylephrine HCl (Hai-Synephrine Inj) 10 mg STK-MED ONCE .ROUTE ; Start 07/08/19 at 09:44; Stop 07/08/19 at 09:44; Status DC Allopurinol (Zyloprim) 300 mg DAILY PO Last administered on 07/09/19at 08:21; Start 07/08/19 at 13:00 Amlodipine Besylate (Norvasc) 5 mg HS PO Last administered on 07/08/19at 21:25; Start 07/08/19 at 21:00 Atorvastatin Calcium (Lipitor) 20 mg HS PO Last administered on 07/08/19at 21:25; Start 07/08/19 at 21:00 Citalopram Hydrobromide (CeleXA) 20 mg DAILY PO Last administered on 07/09/19at 08:21; Start 07/08/19 at 13:00 Glipizide (Glucotrol Er) 5 mg DAILY08 PO Last administered on 07/09/19at 08:20; Start 07/08/19 at 13:00 Losartan Potassium (Cozaar) 100 mg DAILY PO Last administered on 07/09/19at 08:21; Start 07/08/19 at 13:00 Metformin HCl (Glucophage) 1,000 mg BIDWMEALS PO Last administered on 07/09/19at 08:21; Start 07/08/19 at 17:00 Dextrose (Dextrose 50%-Water Syringe) 12.5 gm PRN Q15MIN PRN IV SEE COMMENTS; Start 07/08/19 at 10:00 Dextrose (Iv Dextrose 5%) 250 ml PRN Q15MIN PRN IV SEE COMMENTS; Start 07/08/19 at 10:00 Acetaminophen (Tylenol) 650 mg PRN Q6HRS PRN PO MILD PAIN / TEMP; Start 07/08/19 at 10:00 Al Hydroxide/Mg Hydroxide (Mylanta Plus Xs) 30 ml PRN Q3HRS PRN PO HEARTBURN / GAS; Start 07/08/19 at 10:00 Calcium Carbonate/ Glycine (Tums) 500 mg PRN Q3HRS PRN PO INDIGESTION; Start 07/08/19 at 10:00 Diphenhydramine HCl (Benadryl) 25 mg PRN Q6HRS PRN PO ITCHING; Start 07/08/19 at 10:00 Naloxone HCl (Narcan) 0.1 mg PRN Q2MIN PRN IV ADMIN; Start 07/08/19 at 11:00 Sodium Chloride (Normal Saline Flush) 3 ml QSHIFT PRN IV AFTER MEDS AND BLOOD DRAWS; Start 07/08/19 at 10:00 Potassium Chloride/Sodium Chloride 1,000 ml @ 75 mls/hr [id number] IV Last administered on 07/08/19at 16:14; Start 07/08/19 at 09:50 Oxycodone/ Acetaminophen (Percocet 5/325) 1 tab PRN Q4HRS PRN PO MILD PAIN, 1ST CHOICE Last administered on 07/09/19at 09:30; Start 07/08/19 at 10:00 Oxycodone/ Acetaminophen (Percocet 5/325) 2 tab PRN Q4HRS PRN PO MODERATE PAIN, SEVERE PAIN Last administered on 07/09/19at 04:13; Start 07/08/19 at 10:00 Methocarbamol (Robaxin) 750 mg PRN TID PRN PO MUSCLE SPASMS Last administered on 07/09/19at 08:29; Start 07/08/19 at 10:00 Docusate Sodium (Colace) 100 mg BID PO Last administered on 07/09/19at 08:21; Start 07/08/19 at 21:00 Magnesium Hydroxide (Milk Of Magnesia) 2,400 mg PRN Q12HR PRN PO CONSTIPATION; Start 07/08/19 at 10:00 Ondansetron HCl (Zofran) 4 mg PRN Q6HRS PRN IVP NAUESA, 1ST CHOICE; Start 07/08/19 at 10:00 Cefazolin Sodium (Ancef) 1 gm Q8H IVP Last administered on 07/09/19at 09:00; Start 07/08/19 at 17:00; Stop 07/09/19 at 09:01; Status DC Fentanyl Citrate (Fentanyl 2ml Vial) 50 mcg PRN Q2HR PRN IVP PAIN Last administered on 07/09/19at 06:38; Start 07/08/19 at 10:00 Hydrochlorothiazide (Hydrodiuril) 25 mg DAILY PO Last administered on 07/09/19at 08:20; Start 07/08/19 at 13:00 Propofol 50 ml @ As Directed STK-MED ONCE IV ; Start 07/08/19 at 11:48; Stop 07/08/19 at 11:48; Status DC Remifentanil HCl (Ultiva) 1 mg STK-MED ONCE IV ; Start 07/08/19 at 12:19; Stop 07/08/19 at 12:20; Status DC Desflurane (Suprane) 90 ml STK-MED ONCE IH ; Start 07/08/19 at 12:56; Stop 07/08/19 at 12:57; Status DC Morphine Sulfate (Morphine Sulfate) 4 mg STK-MED ONCE .ROUTE ; Start 07/08/19 at 13:13; Stop 07/08/19 at 13:13; Status DC Morphine Sulfate (Morphine Sulfate) 4 mg 1X ONCE IV Last administered on 07/08/19at 13:27; Start 07/08/19 at 13:17; Stop 07/08/19 at 13:26; Status DC Active Scripts Active Celexa (Citalopram Hydrobromide) 20 Mg Tablet 20 Mg PO DAILY 30 Days Reported Indomethacin 50 Mg Capsule 50 Mg PO DAILY08 Percocet 5-325 Mg Tablet (Oxycodone/Acetaminophen) 1 Each Tablet 1-2 Tab PO PRN Q4HRS PRN Glipizide Er (Glipizide) 5 Mg Tab.er.24 5 Mg PO DAILY Allopurinol 100 Mg Tablet 300 Mg PO DAILY Amlodipine Besylate 5 Mg Tablet 5 Mg PO HS Metformin Hcl 1,000 Mg Tablet 1,000 Mg PO BIDWMEALS Atorvastatin Calcium 20 Mg Tablet 20 Mg PO HS Losartan-Hctz 100-25 Mg Tab (Losartan/Hydrochlorothiazide) 1 Each Tablet 1 Each PO DAILY08 LAST DOSE GIVEN: DATE:09-21-15 TIME:9:00 a.m. NEXT DOSE DUE: DATE:09-22-15 TIME:9:00 a.m. Vitals/I & O Vital Sign - Last 24 Hours 07/08/19 07/08/19 07/08/19 07/08/19 13:00 13:15 13:27 13:30 Pulse 100 100 Resp 20 20 20 B/P (MAP) 143/73 134/77 Pulse Ox 96 99 96 O2 Delivery Mask Simple Mask Simple Mask Simple Mask O2 Flow Rate 10 10 10.0 10 07/08/19 07/08/19 07/08/19 07/08/19 13:45 14:00 14:00 14:15 Pulse 86 94 89 Resp 20 20 20 20 B/P (MAP) 133/75 129/71 126/69 Pulse Ox 96 92 90 96 O2 Delivery Room Air Room Air Room Air Room Air 07/08/19 07/08/19 07/08/19 07/08/19 14:30 14:45 14:56 15:04 Temp 97.3 97.5 97.3 97.5 Pulse 92 91 Resp 20 20 20 B/P (MAP) 133/71 121/78 Pulse Ox 96 97 O2 Delivery Nasal Cannula Nasal Cannula Nasal Cannula Nasal Cannula O2 Flow Rate 2 2 2.0 2 07/08/19 07/08/19 07/08/19 07/08/19 15:45 15:50 16:00 16:15 Temp 98.5 98.5 Pulse 90 82 Resp 20 B/P (MAP) 129/79 (96) 120/83 (95) 143/85 (104) Pulse Ox 96 O2 Delivery Nasal Cannula Nasal Cannula O2 Flow Rate 2.0 2.0 07/08/19 07/08/19 07/08/19 07/08/19 16:30 17:00 17:30 18:24 Temp 98.3 98.3 Pulse 77 71 Resp 20 20 B/P (MAP) 144/80 (101) 141/83 (102) 133/89 (104) Pulse Ox 97 O2 Delivery Nasal Cannula O2 Flow Rate 2.0 07/08/19 07/08/19 07/08/19 07/08/19 18:30 19:00 20:00 21:25 Temp 98.2 98.2 Pulse 76 78 Resp 18 18 B/P (MAP) 144/83 (103) 150/93 Pulse Ox 96 96 O2 Delivery Nasal Cannula Nasal Cannula Nasal Cannula O2 Flow Rate 2.0 2.0 2.0 07/08/19 07/08/19 07/08/19 07/09/19 21:26 22:30 23:00 03:00 Temp 98.0 97.9 98.0 97.9 Pulse 82 78 Resp 20 18 18 18 B/P (MAP) 143/76 (98) 151/88 (109) Pulse Ox 96 98 99 O2 Delivery Nasal Cannula Nasal Cannula Nasal Cannula O2 Flow Rate 2.0 2.0 2.0 07/09/19 07/09/19 07/09/19 07/09/19 04:13 05:02 06:53 08:20 Temp 97.7 97.7 Pulse 74 91 Resp 18 18 20 B/P (MAP) 142/88 (106) 124/77 (93) Pulse Ox 99 99 95 O2 Delivery Room Air Room Air Room Air 07/09/19 08:21 Pulse 91 B/P (MAP) 124/77 Intake and Output 07/08/19 07/08/19 07/09/19 15:00 23:00 07:00 Intake Total 1750 ml 910 ml 1450 ml Output Total 25 ml 1370 ml 300 ml Balance 1725 ml -460 ml 1150 ml DARIANA MARTE [employer] WORK[employer] Jul 09, 2019 10:41
[2019-07-09 10:47] VITALS: BP 138/77
--- NOTE | 2019-07-09 17:06 | PATHOLOGY ---
[facility] Accession Number: [id number] . 01 Material submitted: . vertebral column - CERVICAL DISC . 01 Clinical history: . Cervical stenosis and myelopathy . 02 Diagnosis: Segments of cartilaginous tissue and bone, cervical disc: - Degenerative changes of cartilaginous tissue. . (JPM:mml; 07/09/2019) [facility] 07/09/2019 1534 Local . 02 Comment: There is no evidence of an acute inflammatory process or malignancy. . 02 Electronically signed: . Osman Hanson MD, Pathologist NPI- [id number] . 01 Gross description: . Received in formalin labeled "Barry Headley, cervical disc," are several pieces of glistening, fibrous tissue measuring 2.8 x 1.5 x 0.9 cm in aggregate dimensions, containing small fragments of possible bone. The tissue is submitted representatively in cassette A1, following decalcification. (TSD; 07/08/2019) TOB/TOB 07/08/20192022 Local . 02 Pathologist provided ICD-10: M50.30 . 02 CPT . 134870, 128147 Specimen Comment: A courtesy copy of this report has been sent to [phone], [phone] Specimen Comment: [id number] Specimen Comment: Report sent to / DR CABRERA Performed at: 01 [facility] [address], [place] [id number] MD Mike Mcconnell MD Phone: [phone] Performed at: 02 [facility] [address] [place], [place] [id number] MD Osman Hanson MD Phone: [phone]
--- NOTE | 2019-07-12 13:19 | OP ---
DATE OF SURGERY: 07/08/2019 PREOPERATIVE DIAGNOSES: Cervical spinal stenosis C5-C6, C6-C7 with cervical myelopathy. POSTOPERATIVE DIAGNOSES: Cervical spinal stenosis C5-C6, C6-C7 with cervical myelopathy. OPERATION PERFORMED: Anterior cervical microdiscectomy C5-C6, C6-C7; anterior cervical interbody fusion, C5-C6, C6-C7; anterior cervical plate, C5, C6, C7. The operation was done with multimodality monitoring including EMG, SSEP, NIMS. We used fluoroscopy. SURGEON: Cezar Monte M.D. RIVETING MACHINE OPERATOR AUTOMATIC: BRISEIDA Perales assisted with the surgery. She assisted with the exposure, the 2-level decompression as well as the closure. OPERATIVE INDICATIONS: The patient is a pleasant 68-year-old man who developed intractable pain with headache, neck pain, dizziness and balance difficulties along with numbness in his arms and hands. On imaging studies, he has significant stenosis at C6-C7 and to a lesser extent at C5-C6 and I measured. I recommended a 2-level anterior cervical discectomy and fusion. I spoke with him about the surgery, the risks, technique and expected postoperative course and he wished to go ahead. DESCRIPTION OF PROCEDURE: Following general endotracheal anesthesia was done very carefully to avoid any flexion of the neck. The patient was positioned in a neutral position. The anterior cervical region was then prepped and draped in standard fashion. DALE hose and AV impulse boots were applied for DVT prophylaxis. The microscope was draped. Fluoroscopy was draped and brought into the field. Monitoring was established. Ancef 2 gram was given less than 1 hour prior to initiation of the surgery. Using fluoroscopic guidance,an incision was made from the midline around to the right in a skin crease. I dissected down through skin and subcutaneous tissue. I dissected around the medial aspect of the sternocleidomastoid and carotid artery sheath down the anterior cervical vertebral body. I reflected the trachea and esophagus contralaterally and then I worked to obtain inferior exposure to reach C6-C7. This accomplished, I placed 14 mm distraction pins in C6 and C7. After setting the retractors I brought the microscope in and the remainder of surgery was done with the microscope using microscopic technique. I incised the anterior annulus. There was considerable anterior spurring and I drilled this away laterally. I performed a discectomy. I scraped cartilaginous endplate, I drilled the posterior spurring. I used the 1 and 2 mm Kerrisons to trim away the annulus and opened the ligament and then worked laterally bilaterally to form a decompression. I then scraped and placed an interbody fusion cage of 7 mm. This was packed with allograft and autograft bone. The autograft bone, I obtained from saving the bone from the removal of the spur anterior spurring and I then removed the pin from C7 and moved the pin in C5 and then distracted the C5-C6. After removing the retractors superiorly, again, I incised the anterior annulus. I performed the identical operation at this level and trimmed away the very thickened ligament. There was a free fragment in the anterior epidural space, which I removed. At C6-C7, there was more of a disc osteophyte complex, which I trimmed away. At any rate, as I worked, the region became well decompressed. Again, I scraped cartilaginous endplate. Again, I sized and placed a 6 mm interbody fusion cage packed with allograft and autograft bone. I then laid an anterior [place] plate and I placed six 14 mm screws. Inferior and superior screws were placed first and then remaining screws were placed. I removed the retractor, irrigated copiously and assured myself of excellent hemostasis and I closed the wound in layers with absorbable suture. The skin was closed with 4-0 subcuticular stitch. The operation went very well and the patient taken to the recovery room uneventfully. I was quite pleased with the surgery. CEZAR MONTE MD DR: TENISHA/robert JOB#: [id number] / [id number] HOWIE
== END 2019-07-09 12:42 | disposition home or self-care (01) | DRG 472 ==
LOC: OPSVCIP 07:15 → 4 SOUTHEST 14:48
PROVIDERS: ADMIT Neurological Surgery; ATTEND Neurological Surgery
PROC: 0RB30ZZ Excision of Cervical Vertebral Disc, Open Approach (ICD-10-PCS; 2019-07-08)
PROC: 00NW0ZZ Release Cervical Spinal Cord, Open Approach (ICD-10-PCS; 2019-07-08)
PROC: 4A11X4G Monitoring of Peripheral Nervous Electrical Activity, Intraoperative, External Approach (ICD-10-PCS; 2019-07-08)
PROC: 0RG20A0 Fusion of 2 or more Cervical Vertebral Joints with Interbody Fusion Device, Anterior Approach, Anterior Column, Open Approach (ICD-10-PCS; principal; 2019-07-08 08:30)
DX: M48.02 Spinal stenosis, cervical region (principal); G99.2 Myelopathy in diseases classified elsewhere; E11.9 Type 2 diabetes mellitus without complications; E78.5 Hyperlipidemia, unspecified; I10 Essential (primary) hypertension; M25.78 Osteophyte, vertebrae; Z85.46 Personal history of malignant neoplasm of prostate; Z86.73 Personal history of transient ischemic attack (TIA), and cerebral infarction without residual deficits; Z96.651 Presence of right artificial knee joint; G89.29 Other chronic pain; M10.9 Gout, unspecified; M19.90 Unspecified osteoarthritis, unspecified site; Z90.49 Acquired absence of other specified parts of digestive tract; Z84.89 Family history of other specified conditions
CPT/HCPCS: 76000; 82962; A7015; C1713; J0330; J0690; J0696; J0780; J1100; J1815; J2001; J2270; J2370; J2704; J3010; J3490; J7030; J7120; 97116; 97530; G0378

== ENCOUNTER → 2019-09-14 | Outpatient (CLI) | payer MEDICARE ==
[~2019-09-14] MED LIST changes: -BACITRACIN 50,000 UNIT in IV NORMAL SALINE 1000ML BAG 1,000 ML IRR ONE; +DOCU-153 PO; -HYDROmorphone 2 MG/ML VIAL IV PRN; +METH750T2 PO; -MORPHINE SULFATE 2 MG/ML VIAL. IV PRN; -fentaNYL PF VIAL 100 MCG/2 ML VIAL IV PRN
--- NOTE | 2019-09-14 13:19 | KCIC ---
Cervical spine x-rays 3 views HISTORY: Status post cervical fusion surgery. Thoracic radiculopathy. FINDINGS: There is some limited visualization of the C7 vertebra on the lateral swimmer's views due to summation density due to overlapping shoulders and clavicles however there is apparent intact cervical vertebral body height and alignment. No fracture evident. Postoperative change of ACDF at C5-C6 and C6-C7, with anterior plate and screws, and interbody spacers which are positioned at the central and anterior portions of the disc spaces. The C5 and C6 screws are positioned within the lower aspects of the vertebral bodies however there is no evidence of breech of the inferior endplates to the disc spaces evident. No bone lysis surrounding the hardware to suggest loosening. No abnormal migration of hardware. Bulky disc osteophyte anteriorly at C2-C3 and C3-C4. Moderate disc height loss at C3-C4. Mild disc height loss at C4-C5. At the level of the vertebral spurring on the AP view is noted. C1-C2 atlantodental arthritic change. Cervical carotid artery calcified plaque noted on the AP view. IMPRESSION: Postoperative changes of ACDF at C5-C6 and C6-C7. Sequela of cervical disc disease and arthritis. See discussion above. MRI thoracic spine without contrast HISTORY: Thoracic radiculopathy. 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 Lower lumbar disc disease described on prior imaging. Susceptibility artifact lower cervical spine and cervicothoracic junction related to the ACDF hardware. Thoracic vertebral body height and alignment is intact. There is a slight chronic appearing compression deformity of the T4 vertebral superior endplate. No bone marrow edema or acute fracture. Facet spurring throughout the thoracic spine contributes to mild neural foraminal stenoses. At T7-T8 there is disc height loss and desiccation associated with a focal central disc extrusion which measures 5 mm transaxial and 10 mm craniocaudal extending both above and below the disc level at the ventral epidural spinal canal with buckling of the dural sac, extrusion abuts and deforms the spinal cord which is compressed between the extrusion and the dorsal epidural fat with severe spinal canal stenosis dural sac diameter is 5 mm. There is mild focal intramedullary spinal cord T2-weighted hyperintensity best observed on the axial T2-weighted imaging which could indicate mild edema from myelopathy although given the narrowing of the spinal cord, changes of myelomalacia are not excluded. There is no myelomalacia, edema or syrinx of the spinal cord above or below this extrusion level. IMPRESSION: 1. Thoracic spine T7-T8 disc extrusion contributes to severe spinal canal stenosis with compression and deformity of the spinal cord. There is focal spinal cord intramedullary signal abnormality which could be due to myelopathy versus early changes of myelomalacia. See discussion above. 2. Thoracic spine facet arthritis with mild neural foraminal stenoses at the mid to lower thoracic spine. 3. There is a mild chronic compression deformity of the T4 thoracic vertebral body. No acute fracture evident. Electronically signed by: Uday German MD (09/14/2019 1:16 PM) [id number]
== END | disposition home or self-care (01) ==
LOC: KCIC MRI 11:44
PROVIDERS: ATTEND Neurological Surgery
DX: M51.14 Intervertebral disc disorders with radiculopathy, thoracic region (principal); M48.04 Spinal stenosis, thoracic region; M43.8X4 Other specified deforming dorsopathies, thoracic region; M25.78 Osteophyte, vertebrae; I65.29 Occlusion and stenosis of unspecified carotid artery; Z98.1 Arthrodesis status
CPT/HCPCS: 72040; 72146

== ENCOUNTER → 2019-11-15 | Outpatient (CLI) | payer MEDICARE ==
[~2019-11-15] MED LIST changes: +IOHEXOL 180 MG/ML 10 ML VIAL. ONE; +methylPREDNISolone ACETATE 40 MG/ML VIAL. ONE
--- NOTE | 2019-11-15 11:11 | PAIN ---
DATE OF SERVICE: 11/15/2019 INITIAL CONSULTATION FOR PAIN CLINIC CHIEF COMPLAINT: Low back and bilateral lower extremity pain, left greater than right. HISTORY OF PRESENT ILLNESS: This is a 68-year-old male who presents with history of pain in the low back, bilateral lower extremities, mostly on the left for several years, worse over the past 6 months or so, but not with any specific injury or action he is aware of. The patient reports it is getting worse with time and walking, standing, changing positions, better with sitting or lying down. The patient describes the pain as constant and throbbing in the low back radiating to the left posterior gluteus, lateral thigh, anterior thigh and on the right as well, but mostly on the left side with walking. The patient is using a cane in his right hand and was ambulating. The patient reports the pain awakens him from sleep at least twice a night, can affect his bowel or bladder control, but no loss of continence. He has some increased frequency. The patient reports it does affect his ability to walk, again he is using a cane in his right hand. The patient has had some therapies in the past, stretching and strengthening exercises as well. He is currently doing and trying to walk daily, although the pain is limiting him. He does use a cane, when he is going further distances. The patient has had no recent physical therapy, chiropractic treatments or other modalities, just doing physical therapy on his own and walking on his own. The patient describes the pain as a 9 on a scale of 10 today. The patient's disability rating is 0 being the least, 10 being the worst, is a 9 with family home responsibilities, recreation, social activity, occupation, self-care, sexual behavior and life support activities, 9 in all categories. The patient did have MRI scan of the lumbar spine showing multilevel lumbar spondylosis with congenitally small spinal canal contributing to multilevel canal and neural foraminal narrowing with [id number] at L4-L5 canal narrowing, small posterior disk bulge at L3-L4, L4-L5 and L5-S1 with [id number] canal narrowing L4-L5 and L5-S1 shows mild right neural foraminal narrowing and mild right neural foraminal at L2-L3 as well. PAST MEDICAL HISTORY: Significant for hypertension, type 2 diabetes, and arthritis. PREVIOUS SURGERY: Includes cervical laminectomy and fusion, right total knee replacement, bilateral nerve transposition at the elbow. CURRENT MEDICATIONS: Include indomethacin, amlodipine, losartan, metformin, glipizide, allopurinol, and atorvastatin. ALLERGIES: The patient has no known drug allergies. FAMILY HISTORY: Significant for coronary artery disease. SOCIAL HISTORY: The patient does not smoke, does drink alcohol occasionally and does not use any illegal, illicit or recreational drugs. He is , lives with his spouse, and lives locally in [place], [place]. REVIEW OF SYSTEMS: The patient's review of systems is positive for those items mentioned in history of present illness. All systems reviewed and otherwise negative. It is complete, full and well documented on the patient's chart. PHYSICAL EXAMINATION: VITAL SIGNS: The patient's blood pressure is 126/91, pulse 101, respirations 20, temperature 98.3 degrees Fahrenheit, height is 5 feet 9 inches, weight is 273 pounds. GENERAL: The patient is awake, alert, oriented, appropriate, very pleasant demeanor. HEENT: Shows normocephalic, atraumatic. Extraocular movements are intact and symmetrical. Oral cavity: Mucous membranes moist and pink. Dentition is intact. NECK: Shows anterior throat supple without palpable lymphadenopathy noted. Swallow reflex symmetrical. CHEST: Shows normal on inspection. Breath sounds clear bilaterally. HEART: Shows S1, S2 clear. No murmurs auscultated. ABDOMEN: Soft, nontender, nondistended. No palpable organomegaly is noted. No rebound or guarding demonstrated. BACK: Shows spine grossly in the midline. Normal appearing thoracic kyphosis and minor flattening of lumbar lordotic curvature. Lumbar paraspinous muscle shows symmetrical on inspection, on palpation shows some moderate tenderness diffusely bilaterally going diffusely without significant radiation demonstrated. The patient's back shows no specific tenderness over the spinous processes, sacrum or sacroiliac regions. Some mild tenderness in the lumbar paraspinous muscles, again without radiation. The patient has good rotational motion of lumbar spine, both laterally as well as extension and flexion without significant difficulty. EXTREMITIES: The patient's lower extremities show deep tendon reflexes at 1+ patellar tendons and tendo calcaneus tendons are equal. Motor exam is strong with 5/5 dorsiflexion, extension, quadriceps and hamstring flexion and symmetrical. Peripheral pulses are 1+ posterior tibia. No peripheral edema is noted bilaterally. Lower extremities are warm and dry to touch, equal in color and appearance. The patient's straight leg raise is noted to be negative for reproduction of radicular symptoms bilaterally. Gaenslen's and Jp's maneuvers are grossly negative bilaterally as well. The patient is able to stand, stand on his toes without significant difficulty, is walking with a slight favoring gait, does appear to favor the left lower extremity using a cane in his right hand to ambulate. SKIN: The patient's skin shows warm and dry, good turgor. No edema. No sores, rashes or bruising. IMPRESSION: 1. This is a 68-year-old male with long history of low back pain, left lower extremity pain greater than right in a radicular fashion. 2. MRI scan of lumbar spine as noted. 3. Type 2 diabetes. 4. Hypertension. 5. Arthritis. PLAN: Options were discussed with the patient including conservative medical managements, continued physical therapies, interventional techniques. He would like to pursue interventional techniques. We discussed a lumbar epidural steroid injection using description as well as anatomical models to describe the procedure. Risks were then discussed including, but not limited to bleeding, infection, possibility of epidural hematoma, subsequent neurological compromise, dural puncture, headaches, spinal cord and/or nerve damage, side effects of steroid medication and poor results regarding pain control. The patient understands and wished to proceed. The patient will return to clinic in approximately 2 weeks for followup. He was counseled on return appointment, activity level and side effects to be aware of. DIAGNOSES: Lumbar radiculopathy with lumbar degenerative disk disease and lumbar spondylosis. PROCEDURE: Lumbar epidural steroid injection, translaminar approach at the L4-L5 level using C-arm fluoroscopic guidance under sterile prep and drape using local anesthetic. MEDICATION INJECTED: A total of 120 mg Depo-Medrol plus 10 mL of preservative-free normal saline and 2 mL of contrast. CONDITION AT DISCHARGE: Stable. The patient tolerated the procedure well, had no complications. RICHMOND FERREIRA MD DR: DRE/robert JOB#: [id number] / [id number] DENIZ Cam MD
== END ==
LOC: PNCL 09:20
PROVIDERS: ATTEND Anesthesiology
DX: M51.16 Intervertebral disc disorders with radiculopathy, lumbar region (principal); M47.816 Spondylosis without myelopathy or radiculopathy, lumbar region; I10 Essential (primary) hypertension; E11.9 Type 2 diabetes mellitus without complications; Z87.39 Personal history of other diseases of the musculoskeletal system and connective tissue; Z96.651 Presence of right artificial knee joint; Z98.890 Other specified postprocedural states; Z72.89 Other problems related to lifestyle; Z79.84 Long term (current) use of oral hypoglycemic drugs
CPT/HCPCS: 62323; J1030; Q9965

== ENCOUNTER → 2019-12-02 | Outpatient (CLI) | payer MEDICARE ==
[~2019-12-02] MED LIST changes: -WARF-78 PO; +WARF5TAB2 PO; +methylPREDNISolone ACETATE 80 MG/ML VIAL. ONE
--- NOTE | 2019-12-02 12:43 | PAIN ---
DATE OF SERVICE: 12/02/2019 PROGRESS NOTE FOR PAIN CLINIC DIAGNOSES: Lumbar radiculopathy with lumbar degenerative disk disease and lumbar spondylosis. HISTORY OF PRESENT ILLNESS: The patient is a 69-year-old male who returns for followup status post lumbar epidural steroid injection x 1 on 11/15/2019. The patient reports he did very well, near 100% improvement for the first 2 weeks, the pain is returning now, but is not near what it was prior to his injection. The patient reports it still across the low back and bilateral lower extremities, lateral thighs, anterior thighs, medial thighs, essentially right equal to left, but more just in the back and now less in the legs. The patient reports it is a 7 on a scale of 10 at its worst, least and average over the past week and is a 7 on a scale of 10 today. The patient reports it is becoming more aching now in the low back, tight and shooting pains, occasionally in the legs, but only occasionally tingling sensation in the legs as well, becoming more constant in the low back. Initially, he was doing much better with increased with walking, standing, doing work activities, household activities, sleeping better at night. Reports, it still does not awaken him from sleep at night. No new motor or sensory deficits, no bowel or bladder incontinence or other complaints. PHYSICAL EXAMINATION: VITAL SIGNS: The patient's blood pressure is 155/102, pulse 56, respirations are 18, temperature is 98.2 degrees Fahrenheit, height is 5 feet 9 inches, weight is 289 pounds. GENERAL: The patient is awake, alert, oriented, appropriate, very pleasant demeanor. HEENT: Shows normocephalic, atraumatic. Extraocular movements are intact and symmetrical. Oral cavity: Mucous membranes moist and pink. Dentition is intact. NECK: Shows anterior throat supple without palpable lymphadenopathy noted. Swallow reflex symmetrical. CHEST: Shows normal on inspection. Breath sounds are clear bilaterally. HEART: Shows S1, S2 clear. ABDOMEN: Obese, soft, nontender, nondistended. BACK: Shows spine grossly in the midline. Normal appearing thoracic kyphosis and some minor flattening of lumbar lordotic curvature. Lumbar paraspinous muscle shows symmetrical on inspection, with palpation shows some moderate tenderness diffusely bilaterally, but only diffusely without significant radiation. The patient has good rotational motion of lumbar spine, both laterally as well as extension and flexion without significant difficulty or pain reported. EXTREMITIES: Lower extremities show deep tendon reflexes 1+ in patellar and tendo calcaneus tendons. Motor exam is strong with 5/5 dorsiflexion, extension, quadriceps and hamstring flexion symmetrical. Peripheral pulses are 1+. No peripheral edema bilaterally. ASSESSMENT AND PLAN: Options were discussed with the patient. The patient's old chart was reviewed as his current medication regimen updated. Current review of systems updated today as well and we will proceed with a second series of lumbar epidural steroid injection today with fluoroscopic guidance. Risks were again discussed including, but not limited to, bleeding, infection, possibility of epidural hematoma, subsequent neurological compromise, dural puncture, headaches, spinal cord and/or nerve damage, side effects of steroid medication and poor results regarding pain control. The patient understands and wished to proceed. The patient will return to clinic in approximately 2 weeks for followup. He was counseled on return appointment, activity level and side effects to be aware of. DIAGNOSES: Lumbar radiculopathy with lumbar degenerative disk disease and lumbar spondylosis. PROCEDURE: Lumbar epidural steroid injection, translaminar approach at L4-L5 level using C-arm fluoroscopic guidance under sterile prep and drape using local anesthetic. MEDICATION INJECTED: A total of 120 mg Depo-Medrol plus 10 mL of preservative-free normal saline and 2 mL of contrast. CONDITION AT DISCHARGE: Stable. The patient tolerated the procedure well, had no complications. RICHMOND FERREIRA MD DR: DRE/robert JOB#: [id number] / [id number]
== END ==
LOC: PNCL 10:49
PROVIDERS: ATTEND Anesthesiology
DX: M51.16 Intervertebral disc disorders with radiculopathy, lumbar region (principal); M47.816 Spondylosis without myelopathy or radiculopathy, lumbar region
CPT/HCPCS: 62323; J1030; J1040; Q9965

== ENCOUNTER → 2020-02-16 | Outpatient (CLI) | payer MEDICARE ==
--- NOTE | 2020-02-16 09:09 | PDOC ---
Progress Note - Pain Clinic Date of Service: DOS: DATE: 02/16/20 TIME: 09:05 Diagnosis: Dx: Lumbar radiculopathy with lumbar degenerative disc disease and lumbar spondylosis History or Present Illness: HPI: 69-year-old male returns follow-up status post lumbar epidural steroid injection x2. Patient reports about 100% improvement for 2 months patient reports it took the pain away almost completely but it took a few days to kick in. Patient ports even increase his activity with distance walking and doing household activities bending stooping changing positions much greater ease and comfort also sleeping well with much greater ease as well as traveling. Patient reports no new motor or sensory deficits no new bowel or bladder incontinence reports his pain is in the low back and the bilateral lower extremities posterior gluteus lateral thighs anterior thighs medial thighs also some pain in the mid back rate is a 9 on a scale of 10 is average over the past week 10 on its worst 3 this least is a 9 today. Patient describes pain as aching and sharp can be constant with walking and standing starting to return now but much better for several months after the last injection. Physical Exam: VS: Blood pressure is 140/72 pulse 71 respirations 18 temperature 98.3 F height is 5 feet 9 inches weight is 290 pounds PE: PHYSICAL EXAMINATION: GENERAL: The patient is awake, alert, oriented, appropriate, very pleasant demeanor HEENT: Shows normocephalic, atraumatic. Extraocular movements are intact and symmetrical. Oral cavity: Mucous membranes moist and pink. Dentition is intact. NECK: Shows anterior throat supple without palpable lymphadenopathy noted. Swallow reflex symmetrical. CHEST: Shows normal on inspection. Breath sounds are clear bilaterally, no rales rhonchi or wheezes auscultated. HEART: Shows S1, S2 clear. No murmurs auscultated. ABDOMEN: Soft, nontender, nondistended. No palpable organomegaly is noted. No rebound or guarding demonstrated. BACK: Shows spine grossly in the midline. Normal-appearing cervical lordotic curvature. There is slightly increased thoracic kyphosis, some minor flattening of the lumbar lordotic curvature. Lumbar paraspinous muscles show symmetrical on inspection, on palpation shows some moderate tenderness diffusely throughout the upper, middle and lower distribution of the paraspinous muscles bilaterally without specific trigger points, without radiation of pain. The patient has good rotational motion of the lumbar spine, both laterally as well as extension and flexion without significant difficulty. No tenderness over the spinous processes, sacrum or sacroiliac regions. EXTREMITIES: Lower extremities show deep tendon reflexes 1+ in the patellar and tendo calcaneus tendons. Motor exam is 5 on a scale of 5 with right dorsiflexion, extension, quadriceps and hamstring flexion and 5/5 on the left. Peripheral pulses are 1+ posterior tibial. No peripheral edema is noted bilaterally. Lower extremities are warm and dry to touch, equal in color and appearance. SKIN: Shows warm and dry, good turgor. No edema. No sores, rashes or bruising throughout. Procedure: Procedure: Options were discussed with the patient. Patient's old chart was reviewed his his current location regimen updated copy of systems updated today as well. We will proceed with a third in the series lumbar epidural steroid injections today with fluoroscopic guidance. Risks again discussed including but not limited to bleeding infection possibility of epidural hematoma subsequent neurological compromise dural puncture headache spinal cord and or nerve damage side effects of steroid medication and portal scarring pain control. Patient understands wished to proceed patient return to clinic in approximately 2 weeks for follow- up was counseled as to return appointment to [facility] and side effects be aware. Medication Injected: Med Injected: Procedure is lumbar epidural steroid injection under local anesthetic using sterile prep and drape at the L4-5 level using C-arm fluoroscopic guidance in both AP and lateral views medications injected is 120 mg Depo-Medrol + 10 mL preservative-free normal saline and 2 mL for contrast- condition at discharge is stable patient tolerated procedure well had no complications. Condition at Discharge: Condition at Discharge: Condition at discharge stable patient tolerated procedure well had no complications. RICHMOND FERREIRA MD Feb 16, 2020 09:09
== END | disposition home or self-care (01) ==
LOC: PNCL 08:21
PROVIDERS: ATTEND Anesthesiology
DX: M51.16 Intervertebral disc disorders with radiculopathy, lumbar region (principal); M47.896 Other spondylosis, lumbar region; Z72.89 Other problems related to lifestyle; Z79.899 Other long term (current) drug therapy
CPT/HCPCS: 62323; J1030; J1040; Q9965

== ENCOUNTER → 2020-05-23 | Outpatient (CLI) | payer MEDICARE ==
[~2020-05-23] MED LIST changes: +AMLO-186 PO; -AMLO5TAB10 PO; +BUPIVACAINE MPF 0.25% 10 ML VIAL. ONE; -methylPREDNISolone ACETATE 40 MG/ML VIAL. ONE
--- NOTE | 2020-05-23 08:30 | PDOC ---
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 Last seen February 16, 2020. Patient reports about 100% improvement currently still improved with the low back and lower extremity pains. 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 Patient is had pain in the shoulders in the past with good responses with injections as well. Patient reports pain is a 9 on scale 10 is worse of the past week 8 on average 7 its least is an 8 today. Patient reports no new motor or sensory deficits no other changes again low back and legs doing much better. Patient reports the pain in the shoulder awakens him from sleep least every 4-5 hours worse with activity reaching over his head lifting weights with the left arm repetitive motions and of course driving. Patient scribes pain is coming constant aching and burning sometimes dull tight and shooting. Physical Exam: VS: Blood pressure is 132/80 pulse 99 respirations 16 temperature 90.4 F weight is 283 pounds PE: PHYSICAL EXAMINATION: GENERAL: The patient is awake, alert, oriented, appropriate, very pleasant demeanor HEENT: Shows normocephalic, atraumatic. Extraocular movements are intact and symmetrical. Oral cavity: Mucous membranes moist and pink NECK: Shows anterior throat supple without palpable lymphadenopathy noted. Swallow reflex symmetrical. CHEST: Shows normal on inspection. Breath sounds are clear bilaterally no rales rhonchi wheezes auscultated. HEART: Shows S1, S2 clear. No murmurs auscultated. ABDOMEN: Soft, nontender, nondistended, obese. No palpable organomegaly is noted. No rebound or guarding demonstrated. BACK: Shows spine grossly in the midline. Normal-appearing cervical lordotic cu rvature. Cervical spine shows good rotation both laterally as well as extension flexion without significant difficulty or pain reported. There is slightly increased thoracic kyphosis, some minor flattening of the lumbar lordotic curvature. Lumbar paraspinous muscles show symmetrical on inspection, on palpation shows some moderate tenderness diffusely throughout the upper, middle and lower distribution of the paraspinous muscles without specific trigger points, without radiation of pain. The patient has good rotational motion of the lumbar spine, both laterally as well as extension and flexion without significant difficulty. No tenderness over the spinous processes, sacrum or sacroiliac regions. EXTREMITIES: Lower extremities show deep tendon reflexes 1+ in the patellar and tendo calcaneus tendons. Motor exam is 5 on a scale of 5 with right dorsiflexion, extension, quadriceps and hamstring flexion and 5/5 on the left. Peripheral pulses are 1+ posterior tibial. No peripheral edema is noted bilaterally. Lower extremities are warm and dry to touch, equal in color and appearance. Upper extremities show deep tendon reflexes 2+ in the bicep triceps tendons motor exam is strong with mechanical service specialist strength rated at 5 out of 5 as is bicep and tricep flexion. Patient's left shoulder shows some moderate tenderness with palpation over the anterior and posterior deltoid only with deep palpation and also with resistance on abduction at 90 degrees. SKIN: Shows warm and dry, good turgor. No edema. No sores, rashes or bruising throughout. Procedure: Procedure: Options were discussed with the patient. Patient's old chart reviewed his his current medication regimen updated current review of systems updated today as well. We will proceed with a left intra-articular glenohumeral shoulder joint injection today with fluoroscopic guidance. Risks are discussed including but not limited to bleeding infection possibility of intravascular injection sequelae spread local anesthetic numbness side effects steroid medication and portal scarring pain control. Patient understands wished to proceed. Patient return to clinic in approximately 3 weeks for follow-up was counseled as to return appointment activity level and side effects to be aware of. Medication Injected: Med Injected: Under sterile prep and drape using C-arm fluoroscopic guidance patient's left shoulder joint was visualized and using 1% lidocaine was topically anesthetized over the glenohumeral joint using a 22-gauge quickie needle with stylette was then entered in the joint without difficulty under direct fluoroscopic guidance. 1.5 cc of contrast was injected with good spread within the glenohumeral joint without washout. At this time solution of his 3 cc 0.25% ropivacaine and 80 mg Depo-Medrol was then injected into the joint. Needle was removed sterile bandage was applied. Patient tolerated procedure well had no complications. Condition at Discharge: Condition at Discharge: Condition at discharge stable, patient tolerated the procedure well had no complications. RICHMOND FERREIRA MD May 23, 2020 08:30
== END | disposition home or self-care (01) ==
LOC: PNCL 07:43
PROVIDERS: ATTEND Anesthesiology
DX: M19.012 Primary osteoarthritis, left shoulder (principal); M51.16 Intervertebral disc disorders with radiculopathy, lumbar region; M47.26 Other spondylosis with radiculopathy, lumbar region; I10 Essential (primary) hypertension; E78.00 Pure hypercholesterolemia, unspecified; K21.9 Gastro-esophageal reflux disease without esophagitis; M19.90 Unspecified osteoarthritis, unspecified site; M10.9 Gout, unspecified; E11.9 Type 2 diabetes mellitus without complications; E66.9 Obesity, unspecified; Z90.49 Acquired absence of other specified parts of digestive tract; Z98.890 Other specified postprocedural states; Z85.46 Personal history of malignant neoplasm of prostate; Z79.899 Other long term (current) drug therapy; Z72.89 Other problems related to lifestyle
CPT/HCPCS: 20610; 77002; J1040; J3490; Q9965; 20605

== ENCOUNTER → 2020-08-09 | Outpatient (CLI) | payer MEDICARE ==
[~2020-08-09] MED LIST changes: +METH-562 PO; -METH750T2 PO
--- NOTE | 2020-08-09 11:04 | PDOC ---
Progress Note - Pain Clinic Date of Service: DOS: DATE: 08/09/20 TIME: 10:59 Diagnosis: Dx: Lumbar radiculopathy with lumbar degenerative disc disease lumbar spondylosis Left shoulder joint pain with osteoarthritis Left knee joint pain with osteoarthritis History or Present Illness: HPI: 69-year-old male returns follow-up status post lumbar epidural steroid injections as well as left shoulder joint injection patient reports he did very well at each of these about an 80% improvement with the shoulder about 100% improved with the low back. Patient chief complaint is left knee pain which we discussed on his last visit but is beginning worse with walking standing now that his back and shoulder are feeling better his knee is much more noticeable. Patient reports is worse with walking standing specially putting all his weight on his left leg such as climbing a stair or a step better with sitting or lying down generally does not awaken from sleep at night. Patient reports no motor loss but significant disability with walking secondary to the pain in the left knee. Patient rates the pain as a 7 on scale 10 is worse over the past week 7 on average 5 its least and is a 7 today. Patient ports, more constant is aching full feeling in the left knee which is stabbing at times and burning. Physical Exam: VS: Blood pressure is 133/81 pulse 99 respirations 18 temperature 98.5 F height is 5 feet 9 inches weight is 289 pounds PE: PHYSICAL EXAMINATION: GENERAL: The patient is awake, alert, oriented, appropriate, very pleasant demeanor HEENT: Shows normocephalic, atraumatic. Extraocular movements are intact and symmetrical. Oral cavity: Mucous membranes moist and pink. NECK: Shows anterior throat supple without palpable lymphadenopathy noted. Swallow reflex symmetrical. CHEST: Shows normal on inspection. Breath sounds are clear bilaterally, no rales or rhonchi. HEART: Shows S1, S2 clear. No murmurs auscultated. ABDOMEN: Soft, nontender, nondistended, obese. No palpable organomegaly is noted. BACK: Shows spine grossly in the midline. Normal-appearing cervical lordotic curvature. There is increased thoracic kyphosis, some flattening of the lumbar lordotic curvature. Lumbar paraspinous muscles show symmetrical on inspection, on palpation shows some moderate tenderness diffusely throughout the upper, middle and lower distribution of the paraspinous muscles without specific trigger points, without radiation of pain. The patient has good rotational motion of the lumbar spine, both laterally as well as extension and flexion without significant difficulty. EXTREMITIES: Lower extremities show deep tendon reflexes 1+ in the patellar and tendo calcaneus tendons. Motor exam is 5 on a scale of 5 with right dorsiflexion, extension, quadriceps and hamstring flexion and 5/5 on the left. Peripheral pulses are 1+ posterior tibial. No peripheral edema is noted bilater ally. Patient's right knee shows well-healed surgical scar left knee shows good range of motion, both actively and passively, without crepitus or ratcheting with some moderate tenderness in the medial collateral ligament not the lateral aspect. Lower extremities are warm and dry to touch, equal in color and appearance. SKIN: Shows warm and dry, good turgor. No edema. No sores, rashes or bruising throughout. Procedure: Procedure: Options discussed with the patient. Patient will chart reviews his current medication regimen updated current review of systems updated today as well. We will proceed with a left intra-articular knee joint injection today with fluoroscopic guidance. Risks were discussed including but not limited to bleeding infection possibility of intravascular injection sequelae spread local anesthetic numbness side effects of steroid medication exposure to fluoroscopy and portal scarring pain control. Patient understands wished to proceed. Patient return to clinic in approximate 2 weeks for follow-up, was counseled as return appointment activity level, and side effects to be aware of. Medication Injected: Med Injected: Under sterile prep and drape, patient in the supine position using C-arm fluoroscopic guidance patient's left knee was sterilely prepped and draped and using a 22-gauge needle under direct fluoroscopic vision after local anesthetic at the skin was directed into the knee joint and the medial aspect of the knee compartment. Aspiration was noted to be negative at this time 1.5 cc of contrast was injected with good spread within the intra-articular knee joint, without washout. At this time 3 cc 0.25% bupivacaine and 80 mg Depo-Medrol was then injected. Needle was removed sterile bandage was applied. Patient tolerated procedure well and had no complications. Condition at Discharge: Condition at Discharge: Condition at discharge is stable, patient tolerated procedure well and had no complications. RICHMOND FERREIRA MD Aug 09, 2020 11:04
--- NOTE | 2020-08-09 11:05 | PDOC4 ---
PROCEDURE Procedure Patient was consented for a left intra-articular knee joint injection. This were discussed including but not limited to bleeding infection possibility of intravascular injection sequelae spread to local anesthetic and numbness exposure to fluoroscopy and portals regarding pain control. Patient understands wished to proceed. Under sterile prep and drape, patient in the supine position using C-arm fluoroscopic guidance patient's left knee was sterilely prepped and draped and using a 22-gauge needle under direct fluoroscopic vision after local anesthetic at the skin was directed into the knee joint and the medial aspect of the knee compartment. Aspiration was noted to be negative at this time 1.5 cc of cont rast was injected with good spread within the intra-articular knee joint, without washout. At this time 3 cc 0.25% bupivacaine and 80 mg Depo-Medrol was then injected. Needle was removed sterile bandage was applied. Patient tolerated procedure well and had no complications. RICHMOND FERREIRA MD Aug 09, 2020 11:05
== END | disposition home or self-care (01) ==
LOC: PNCL 09:56
PROVIDERS: ATTEND Anesthesiology
DX: M17.12 Unilateral primary osteoarthritis, left knee (principal); M19.012 Primary osteoarthritis, left shoulder; M51.16 Intervertebral disc disorders with radiculopathy, lumbar region; M47.26 Other spondylosis with radiculopathy, lumbar region; E78.00 Pure hypercholesterolemia, unspecified; I10 Essential (primary) hypertension; K21.9 Gastro-esophageal reflux disease without esophagitis; E11.9 Type 2 diabetes mellitus without complications; E66.9 Obesity, unspecified; M19.90 Unspecified osteoarthritis, unspecified site; M10.9 Gout, unspecified; N40.0 Benign prostatic hyperplasia without lower urinary tract symptoms; Z79.899 Other long term (current) drug therapy; Z98.890 Other specified postprocedural states
CPT/HCPCS: 20610; 77002; J1040; J3490; Q9965

== ENCOUNTER → 2020-08-23 | Outpatient (CLI) | payer MEDICARE ==
[~2020-08-23] MED LIST changes: -BUPIVACAINE MPF 0.25% 10 ML VIAL. ONE; +methylPREDNISolone ACETATE 40 MG/ML VIAL. ONE
--- NOTE | 2020-08-23 08:48 | PDOC ---
Progress Note - Pain Clinic Date of Service: DOS: DATE: 08/23/20 TIME: 08:45 Diagnosis: Dx: Lumbar radiculopathy with lumbar degenerative disease and lumbar spondylosis Left shoulder joint pain with osteoarthritis Left knee joint pain with osteoarthritis History or Present Illness: HPI: 69-year-old male returns follow-up status post left knee joint injection as well as left shoulder joint injection with near 100% improvement with each of these patient ports he is doing much better but his back is beginning to become more p ainful he had undergone lumbar epidural steroid injections last summer he did very well with these as well patient reports the pain is returning in the low back rating the bilateral lower extremities posterior gluteus posterior lateral thighs lateral anterior thighs medial thighs mostly across the low back. Patient reports worse with walking standing change positions better with sitting or laying down generally does not awaken from sleep at night. Patient ports pain is a 6 on scale 10 at its worst 6 on average 6 its least is a 6 today patient describes pain as aching and dull shooting in the low back into the lower extremities bilaterally equal right and left and coming more constant with time. Patient reports no new motor or sensory deficits no bowel or bladder incontinence or other complaints. Physical Exam: VS: Blood pressure is 141/85 pulse 87 respirations 16 [id number]. 4 F height is 5 feet 9 inches weight is 295 pounds PE: PHYSICAL EXAMINATION: GENERAL: The patient is awake, alert, oriented, appropriate, very pleasant demeanor HEENT: Shows normocephalic, atraumatic. Extraocular movements are intact and symmetrical. Oral cavity: Mucous membranes moist and pink. NECK: Shows anterior throat supple without palpable lymphadenopathy noted. Swallow reflex symmetrical. CHEST: Shows normal on inspection. Breath sounds are clear bilaterally. HEART: Shows S1, S2 clear. No murmurs auscultated. ABDOMEN: Soft, nontender, nondistended, obese. No palpable organomegaly is noted. BACK: Shows spine grossly in the midline. Normal-appearing cervical lordotic curvature. There is slightly increased thoracic kyphosis, some minor flattening of the lumbar lordotic curvature. Lumbar paraspinous muscles show symmetrical on inspection, on palpation shows some moderate tenderness diffusely throughout the upper, middle and lower distribution of the paraspinous muscles bilaterally without specific trigger points, without radiation of pain. The patient has good rotational motion of the lumbar spine, both laterally as well as extension and flexion without significant difficulty. EXTREMITIES: Lower extremities show deep tendon reflexes 1+ in the patellar and tendo calcaneus tendons. Motor exam is 5 on a scale of 5 with right dorsiflexion, extension, quadriceps and hamstring flexion and 5/5 on the left. Peripheral pulses are 1+ posterior tibial. No peripheral edema is noted bilaterally. Lower extremities are warm and dry to touch, equal in color and appearance. Left knee shows good range of motion without significant tenderness without crepitus or ratcheting. Patient's left shoulder shows good range of motion as well without tenderness and with good strength on resistance with abduction as well as shoulder shrug. SKIN: Shows warm and dry, good turgor. No edema. No sores, rashes or bruising throughout. Procedure: Procedure: Options discussed with the patient. Patient chart reviewed his current medication regimen updated current review of systems updated today as well. We will proceed with a lumbar epidural steroid injection as the first in the series with fluoroscopic guidance. Risks were discussed including but not limited to: Bleeding, infection, possibility of epidural hematoma and subsequent neurological compromise, dural puncture, headaches, spinal cord and/or nerve damage, side effects of steroid medication, and poor results regarding pain control. Patient understands and wished to proceed. Patient return to clinic in approximate 2 weeks for follow-up, was counseled as return appointment activity level, and side effects to be aware of. Medication Injected: Med Injected: Procedure is lumbar epidural steroid injection under local anesthetic using sterile prep and drape at the L4-5 level using C-arm fluoroscopic guidance in both AP and lateral views medications injected is 120 mg Depo-Medrol + 10 mL preservative-free normal saline and 2 mL contrast- condition at discharge is stable patient tolerated procedure well had no complications. Condition at Discharge: Condition at Discharge: Condition at discharge stable, patient tolerated procedure well and had no complications. RICHMOND FERREIRA MD Aug 23, 2020 08:48
--- NOTE | 2020-08-23 08:49 | PDOC4 ---
PROCEDURE Procedure Patient was consented for lumbar epidural steroid injection. Risks were dis cussed including but not limited to: Bleeding, infection, possibility of epidural hematoma and subsequent neurological compromise, dural puncture, headaches, spinal cord and/or nerve damage, side effects of steroid medication, and poor results regarding pain control. Patient understands and wished to proceed. Procedure is lumbar epidural steroid injection under local anesthetic using sterile prep and drape at the L4-5 level using C-arm fluoroscopic guidance in both AP and lateral views medications injected is 120 mg Depo-Medrol + 10 mL preservative-free normal saline and 2 mL contrast- condition at discharge is stable patient tolerated procedure well had no complications. RICHMOND FERREIRA MD Aug 23, 2020 08:48
== END | disposition home or self-care (01) ==
LOC: PNCL 07:54
PROVIDERS: ATTEND Anesthesiology
DX: M51.16 Intervertebral disc disorders with radiculopathy, lumbar region (principal); M47.26 Other spondylosis with radiculopathy, lumbar region; M17.12 Unilateral primary osteoarthritis, left knee; M19.012 Primary osteoarthritis, left shoulder; I10 Essential (primary) hypertension; E78.00 Pure hypercholesterolemia, unspecified; K21.9 Gastro-esophageal reflux disease without esophagitis; E66.9 Obesity, unspecified; E11.9 Type 2 diabetes mellitus without complications; M10.9 Gout, unspecified; Z90.49 Acquired absence of other specified parts of digestive tract; Z98.890 Other specified postprocedural states; Z79.84 Long term (current) use of oral hypoglycemic drugs; Z79.899 Other long term (current) drug therapy
CPT/HCPCS: 62323; J1030; J1040; Q9965

== ENCOUNTER → 2020-09-19 | Outpatient (CLI) | payer MEDICARE ==
--- NOTE | 2020-09-19 08:13 | PDOC4 ---
PROCEDURE Procedure Patient was consented for lumbar epidural steroid injection. Risks were dis cussed including but not limited to: Bleeding, infection, possibility of epidural hematoma and subsequent neurological compromise, dural puncture, headaches, spinal cord and/or nerve damage, side effects of steroid medication, and poor results regarding pain control. Patient understands and wished to proceed. Procedure is lumbar epidural steroid injection under local anesthetic using sterile prep and drape at the L4-5 level using C-arm fluoroscopic guidance in both AP and lateral views medications injected is 120 mg Depo-Medrol + 10 mL preservative-free normal saline and 2 mL contrast- condition at discharge is stable patient tolerated procedure well had no complications. RICHMOND FERREIRA MD Sep 19, 2020 08:13
--- NOTE | 2020-09-19 08:13 | PDOC ---
Progress Note - Pain Clinic Date of Service: DOS: DATE: 09/19/20 TIME: 08:10 Diagnosis: Dx: Lumbar radiculopathy with lumbar degenerative disease lumbar spondylosis Left shoulder joint pain with osteoarthritis Left knee joint pain with osteoarthritis History or Present Illness: HPI: 69-year-old male returns follow-up status post lumbar epidural surgery x1. Patient reports doing very well about 50% improvement overall usually is much more improvement but patient reports he been very active lately has been increasing his activity at home with some increased pain in the low back and more in the right than the left lower extremity mostly the posterior gluteus posterior lateral thighs lateral anterior thighs and medial thighs patient reports pain is 8 on scale 10 at all times worst least and average is 8 today. Patient scribes pain is aching and dull at times constant in the back with activity better with sitting or laying down generally does not awaken from sleep at night. Patient also reports some pain in the left knee which is returning but only mildly. Patient reports no new motor or sensory deficits no new bowel or bladder incontinence or other complaints. Physical Exam: VS: Blood pressure is 130/98 pulse 90 respirations 18 temperature 98.3 F weight is 285 pounds PE: PHYSICAL EXAMINATION: GENERAL: The patient is awake, alert, oriented, appropriate, very pleasant demeanor HEENT: Shows normocephalic, atraumatic. Extraocular movements are intact and symmetrical. Oral cavity: Mucous membranes moist and pink. NECK: Shows anterior throat supple without palpable lymphadenopathy noted. Swallow reflex symmetrical. CHEST: Shows normal on inspection. Breath sounds are clear bilaterally. HEART: Shows S1, S2 clear. No murmurs auscultated. ABDOMEN: Soft, nontender, nondistended, obese. No palpable organomegaly is noted. BACK: Shows spine grossly in the midline. Normal-appearing cervical lordotic curvature. There is slightly increased thoracic kyphosis, some minor flattening of the lumbar lordotic curvature. Lumbar paraspinous muscles show symmetrical on inspection, on palpation shows some moderate tenderness diffusely throughout the upper, middle and lower distribution of the paraspinous muscles without specific trigger points, without radiation of pain. The patient has good rotational motion of the lumbar spine, both laterally as well as extension and flexion without significant difficulty. EXTREMITIES: Lower extremities show deep tendon reflexes 1+ in the patellar and tendo calcaneus tendons. Motor exam is 5 on a scale of 5 with right dorsiflexion, extension, quadriceps and hamstring flexion and 5/5 on the left. Peripheral pulses are 1+ posterior tibial. No peripheral edema is noted bilaterally. Lower extremities are warm and dry to touch, equal in color and appearance. SKIN: Shows warm and dry, good turgor. No edema. No sores, rashes or bruising throughout. Procedure: Procedure: Options were discussed with the patient. Patient's old chart was reviewed his his current medication regimen updated current review of systems updated today as well. We will proceed with a lumbar epidural steroid injection as the second in the series with fluoroscopic guidance. Risks were discussed including but not limited to: Bleeding, infection, possibility of epidural hematoma and subsequent neurological compromise, dural puncture, headaches, spinal cord and/or nerve damage, side effects of steroid medication, and poor results regarding pain control. Patient understands and wished to proceed. Patient return to the clinic in approximate 2 weeks for follow-up, was counseled as to return appointment activity level and side effects to be aware of. Medication Injected: Med Injected: Procedure is lumbar epidural steroid injection under local anesthetic using sterile prep and drape at the L4-5 level using C-arm fluoroscopic guidance in both AP and lateral views medications injected is 120 mg Depo-Medrol + 10 mL preservative-free normal saline and 2 mL contrast- condition at discharge is stable patient tolerated procedure well had no complications. Condition at Discharge: Condition at Discharge: Condition at discharge is stable, patient alert procedure well and had no complications. RICHMOND FERREIRA MD Sep 19, 2020 08:13
== END | disposition home or self-care (01) ==
LOC: PNCL 07:28
PROVIDERS: ATTEND Anesthesiology
DX: M51.16 Intervertebral disc disorders with radiculopathy, lumbar region (principal); M47.26 Other spondylosis with radiculopathy, lumbar region; M17.12 Unilateral primary osteoarthritis, left knee; M19.012 Primary osteoarthritis, left shoulder; I10 Essential (primary) hypertension; E78.00 Pure hypercholesterolemia, unspecified; K21.9 Gastro-esophageal reflux disease without esophagitis; E66.9 Obesity, unspecified; M10.9 Gout, unspecified; E11.9 Type 2 diabetes mellitus without complications; Z90.49 Acquired absence of other specified parts of digestive tract; Z98.890 Other specified postprocedural states; Z79.899 Other long term (current) drug therapy
CPT/HCPCS: 62323; J1030; J1040; Q9965; 77002

== ENCOUNTER → 2021-04-27 | Outpatient (CLI) | payer MEDICARE ==
[~2021-04-27] MED LIST changes: +DOCU-148 PO; -DOCU-153 PO
--- NOTE | 2021-04-27 10:45 | PDOC ---
Progress Note - Pain Clinic Date of Service: DOS: DATE: 04/27/21 TIME: 10:42 Diagnosis: Dx: Lumbar radiculopathy with lumbar degenerative disease and lumbar spondylosis Left shoulder joint pain with osteoarthritis Left knee joint pain with osteoarthritis History or Present Illness: HPI: 70-year-old male returns for follow-up status post lumbar epidural steroid injection last seen August 2020. Patient reports he did 80% better from about 6 months the pain is returning in the low back and now is new in both lower extremities were previously was just focus more on the right side patient reports that his left side is equally as painful as his right is also has some pain in the left knee which is beginning to bother him as well patient reports pain is 8 on scale 10 is worst least and average is an 8 today patient scribes aching and constant in the low back rating the posterior gluteus posterior lateral thigh lateral anterior thigh anteromedial thighs again worse on the right but significant pain on the left now as well. Patient reports he is doing very well with increased activities of daily living walking standing walking greater distances doing household activities travel with greater ease to the last few weeks the pain began to return and again the left leg now as painful as the right leg on some days. Patient reports still better at night does not generally awaken her from sleep at night patient reports no bowel or bladder incontinence. Physical Exam: VS: Blood pressure is 138/99 pulse 87 respirations 18 temperature 98.7 F height is 5 foot 10 inches and weight is 285 pounds. PE: PHYSICAL EXAMINATION: GENERAL: The patient is awake, alert, oriented, appropriate, very pleasant in demeanor HEENT: Shows normocephalic, atraumatic. Extraocular movements are intact and symmetrical. Oral cavity: Mucous membranes moist and pink. NECK: Shows anterior throat supple without palpable lymphadenopathy noted. Swallow reflex symmetrical. CHEST: Shows normal on inspection. Breath sounds are clear bilaterally, distant but no rales or rhonchi. HEART: Shows S1, S2 clear. No murmurs auscultated. ABDOMEN: Soft, nontender, nondistended, obese. No palpable organomegaly is noted. BACK: Shows spine grossly in the midline. Normal-appearing cervical lordotic 5 curvature. There is increased thoracic kyphosis, some flattening of the lumbar lordotic curvature. Lumbar paraspinous muscles show symmetrical on inspection, on palpation shows some moderate tenderness diffusely throughout the upper, middle and lower distribution of the paraspinous muscles, but without specific trigger points, without radiation of pain. The patient has good rotational motion of the lumbar spine, both laterally as well as extension and flexion without significant difficulty. No tenderness over the spinous processes, sacrum or sacroiliac regions. EXTREMITIES: Lower extremities show deep tendon reflexes 1+ in the patellar and tendo calcaneus tendons. Motor exam is 5 on a scale of 5 with right dorsiflexion, extension, quadriceps and hamstring flexion and 5/5 on the left. Peripheral pulses are 1 posterior tibial. No peripheral edema is noted bi laterally. Lower extremities are warm and dry. SKIN: Shows warm and dry, good turgor. No edema. No sores, rashes or bruising throughout. Procedure: Procedure: Options discussed the patient. Patient chart reviews his current medication regimen updated current review of systems updated today as well. We will proceed with a lumbar epidural steroid injection today with fluoroscopic guidance. Risks were discussed including but not limited to: Bleeding, infection, possibility of epidural hematoma and subsequent neurological compromise, dural puncture, headaches, spinal cord and/or nerve damage, side effects of steroid medication, and poor results regarding pain control. Patient understands and wished to proceed. Patient will return to the clinic in approximate 2 weeks for follow-up, was counseled return appointment, activity level, and side effects to be aware of. Medication Injected: Med Injected: Procedure is lumbar epidural steroid injection under local anesthetic using sterile prep and drape at the L4-5 level using C-arm fluoroscopic guidance in both AP and lateral views medications injected is 120 mg Depo-Medrol +10mL preservative-free normal saline and 2 mL contrast- condition at discharge is stable patient tolerated procedure well had no complications. Condition at Discharge: Condition at Discharge: Condition at discharge is stable, patient tolerated the procedure well and had no complications. RICHMOND FERREIRA MD Apr 27, 2021 10:45
--- NOTE | 2021-04-27 10:46 | PDOC4 ---
Procedure Note: ICD 10 Code: ICD 10 Code: M54.16 M51.36 7.816 Procedure Note: Patient was consented for lumbar epidural steroid injection with fluoroscopic guidance. Risks were discussed including but not limited to: Bleeding, infection, possibility of epidural hematoma and subsequent neurological compromise, dural puncture, headaches, spinal cord and/or nerve damage, side effects of steroid medication, and poor results regarding pain control. Patient understands and wished to proceed. Procedure is lumbar epidural steroid injection under local anesthetic using st erile prep and drape at the L4-5 level using C-arm fluoroscopic guidance in both AP and lateral views medications injected is 120 mg Depo-Medrol +10mL preservative-free normal saline and 2 mL contrast- condition at discharge is stable patient tolerated procedure well had no complications. RICHMOND FERREIRA MD Apr 27, 2021 10:46
== END | disposition home or self-care (01) ==
LOC: PNCL 10:05
PROVIDERS: ATTEND Anesthesiology
DX: M51.16 Intervertebral disc disorders with radiculopathy, lumbar region (principal); M47.26 Other spondylosis with radiculopathy, lumbar region; M19.012 Primary osteoarthritis, left shoulder; M17.12 Unilateral primary osteoarthritis, left knee; I10 Essential (primary) hypertension; E78.00 Pure hypercholesterolemia, unspecified; E11.9 Type 2 diabetes mellitus without complications; M10.9 Gout, unspecified; E66.9 Obesity, unspecified; K21.9 Gastro-esophageal reflux disease without esophagitis; N40.0 Benign prostatic hyperplasia without lower urinary tract symptoms; Z79.84 Long term (current) use of oral hypoglycemic drugs; Z79.899 Other long term (current) drug therapy; Z90.49 Acquired absence of other specified parts of digestive tract; Z98.890 Other specified postprocedural states; Z72.89 Other problems related to lifestyle
CPT/HCPCS: 62323; J1030; J1040; Q9965

== ENCOUNTER 2021-05-02 21:36 | Emergency (ER) | payer MEDICARE ==
[~2021-05-02] VITALS: Ht 177.8 cm; Wt 127.3 kg
[~2021-05-02 21:36] MED LIST changes: -IOHEXOL 180 MG/ML 10 ML VIAL. ONE; -methylPREDNISolone ACETATE 40 MG/ML VIAL. ONE; -methylPREDNISolone ACETATE 80 MG/ML VIAL. ONE
[2021-05-02 22:13] LABS: BASO % 0 % (0-3); EOS # 0.2 x10^3/uL (0.0-0.7); EOS % 2 % (0-3); HEMATOCRIT 42.6 % (39.0-53.0); HEMOGLOBIN 13.8 g/dL (13.0-17.5); LYMPH # 2.5 x10^3/uL (1.0-4.8); LYMPH % 29 % (24-48); MEAN CORPUSCULAR HEMOGLOBIN 28 pg (25-35); MEAN CORPUSCULAR HGB CONC 32 g/dL (31-37); MEAN CORPUSCULAR VOLUME 86 fL (79-100); MONO % 11 % (0-9); NEUT # 4.9 x10^3/uL (1.8-7.7); NEUT % 57 % (31-73); PLATELET COUNT 256 x10^3/uL (140-400); RED BLOOD COUNT 4.94 x10^6/uL (4.30-5.70); RED CELL DISTRIBUTION WIDTH 14.7 % (11.5-14.5); WHITE BLOOD COUNT 8.6 x10^3/uL (4.0-11.0)
[2021-05-02 22:21] LABS: CALCIUM 8.8 mg/dL (8.5-10.1); GFR 89.1; POTASSIUM 3.7 mmol/L (3.5-5.1)
[2021-05-02 22:28] LABS: ALBUMIN 3.5 g/dL (3.4-5.0); ALBUMIN/GLOBULIN RATIO 0.9 (1.0-1.7); TOTAL BILIRUBIN 0.2 mg/dL (0.2-1.0); TOTAL PROTEIN 7.5 g/dL (6.4-8.2)
[2021-05-02] MEDS ORDERED: PROCHLORPERAZINE 10 MG/2 ML VIAL. IV ONE (22:30)
[2021-05-02] MEDS ORDERED: DEXAMETHASONE SOD PHOS 20 MG/5 ML VIAL. IV ONE (22:30)
[2021-05-02] MEDS ORDERED: diphenhydrAMINE 50 MG/ML VIAL IVP ONE (22:30)
[2021-05-02] MEDS ORDERED: CONTRAST GIVEN. MC PRN (22:30)
[2021-05-02] MEDS ORDERED: IV NORMAL SALINE 1000ML BAG 1,000 ML IV SCH (22:30)
[2021-05-02] MEDS ORDERED: IOHEXOL 350 MG/ML 100 ML VIAL. IV ONE (23:00)
--- NOTE | 2021-05-02 23:32 | RAD ---
Exam: CT head. CTA head and neck INDICATION: Headache TECHNIQUE: Sequential axial images through the head were obtained without the administration of IV co ntrast. Sequential axial images through the head and neck were obtained following the administration of 100 mL of Isovue-370. Exposure: One or more of the following in the visualized dose reduction techniques were utilized for this examination: 1. Automated exposure control 2. Adjustment of the MA and/or KV according to patient size 3. Use of iterative of reconstructive technique Comparisons: 06/11/2019 FINDINGS: Head: No focal parenchymal lesion or hemorrhage is identified. There is no midline shift or sulcal effaceme nt. Patchy evidence in the periventricular white matter, similar prior. No acute vascular territory infar ction is identified. Blanco-white distinction is preserved. The ventricular system is within normal limits without compression hydrocephalus. The basal cisterns are well maintained. The visualized portions of the paranasal sinuses and mastoid air cells are well-pneumatized. No acute fractures. CTA neck: Visualized portions of the thoracic aorta are normal. Standard three-vessel aortic arch anatomy. Right common carotid artery is patent without evidence stenosis, occlusion or aneurysm. Minimal plaqu e at the origin of the right internal carotid artery without significant stenosis. Left common carotid artery is patent without evidence of stenosis, occlusion or aneurysm. Cervical se gment of the left internal carotid artery is patent without evidence of stenosis, occlusion or aneury sm. There is a focal moderate stenosis at the V4 segment of the right vertebral artery series 2 image 232 . The vertebral artery is patent more distally. Left vertebral artery is patent to the basilar confluence without evidence of stenosis, occlusion or aneurysm. Visualized paraspinal soft tissues are unremarkable. CTA head: Calcified plaque at the cavernous segment of the right internal carotid artery without significant st enosis. Right MCA is patent. Right JAYNE is patent. Calcified plaque cavernous segment left internal carotid artery without significant stenosis. Left MC A is patent. Left JAYNE is patent. Basilar artery is patent without evidence of stenosis, occlusion or aneurysm. computed tomography scanner operator are patent bilater ally. IMPRESSION: 1. No acute intracranial abnormality. 2. Minimal calcified plaque at the cavernous segment of the internal carotid arteries bilaterally wi thout significant stenosis. 3. Mild plaque at the origin of the internal carotid arteries bilaterally without significant stenos is 4. Focal moderate stenosis at the V4 segment of the right vertebral artery. Electronically signed by: Bon Hu MD (05/02/2021 11:30 PM) WAYLON
--- NOTE | 2021-05-02 23:53 | PHYS DOC ---
Past Medical History Past Medical History: Diabetes-Type II, High Cholesterol, Hypertension Additional Past Medical Histor: OBESITY, GOUT Past Surgical History: Knee Replacement Additional Past Surgical Histo: RIGHT KNEE, NERVE SX IN BILAT ELBOWS Smoking Status: Never Smoker Alcohol Use: None Drug Use: None General Adult EDM: Chief Complaint: DIZZY/LIGHT HEADED HPI: HPI: 70 yo M past medical history of CVA, diabetes, hypertension, hyperlipidemia and gout, presents the ED with his daughter, (patient consents to his/her/their knowledge and involvement in pts' medical care), with complaints of gradually worsening headache for the past 2 weeks, now with dizziness with any sudden head position. Patient states headache is located in the back of his head and moves to the front, is sharp and sensitive to light. Reports history of chronic headaches. Denies any recent head or neck injury or trauma. No history of intracranial hemorrhage. Is not on any blood thinners. Is able to walk steadily, denies any syncope or near syncope. Denies any alcohol, cocaine, meth or other illicit drug use. No associated blurry vision, speech changes, facial droop, arm or leg weakness. Reports no dizziness at rest/currently. Review of Systems: Review of Systems: Constitutional: Denies fever or chills. [] Eyes: Denies change in visual acuity. [] HENT: Denies nasal congestion or sore throat. [] Respiratory: Denies cough or shortness of breath. [] Cardiovascular: Denies chest pain or edema. [] GI: Denies abdominal pain, nausea, vomiting, bloody stools or diarrhea. [] : Denies incontinence or dysuria] Musculoskeletal: Denies back pain or joint pain. [] Integument: Denies rash or diaphoresis Neurologic: Denies focal weakness or sensory changes. [] Endocrine: Denies polyuria or polydipsia. [] Lymphatic: Denies swollen glands. [] Psychiatric: Denies depression or anxiety. [] Heart Score: C/O Chest Pain: No Risk Factors: Risk Factors: DM, Current or recent (<one month) smoker, HTN, HLP, family history of CAD, obesity. Risk Scores: Score 0 - 3: 2.5% MACE over next 6 weeks - Discharge Home Score 4 - 6: 20.3% MACE over next 6 weeks - Admit for Clinical Observation Score 7 - 10: 72.7% MACE over next 6 weeks - Early Invasive Strategies Current Medications: Current Medications Medications (Trade) Dose Ordered Sig/Antonia Start Time Stop Time Status Last Admin Dose Admin Dexamethasone Sodium Phosphate (Decadron) 10 mg 1X ONCE 05/02/21 22:30 05/02/21 22:31 DC 05/02/21 22:31 10 MG Diphenhydramine HCl (Benadryl) 25 mg 1X ONCE 05/02/21 22:30 05/02/21 22:31 DC 05/02/21 22:31 25 MG Info (CONTRAST GIVEN -- Rx MONITORING) 1 each PRN DAILY PRN 05/02/21 22:30 05/04/21 22:29 Iohexol (Omnipaque 350 Mg/ml) 75 ml 1X ONCE 05/02/21 23:00 05/02/21 23:01 DC Prochlorperazine Edisylate (Compazine) 10 mg 1X ONCE 05/02/21 22:30 05/02/21 22:31 DC 05/02/21 22:31 10 MG Sodium Chloride 1,000 ml @ 1,000 mls/hr Q1H 05/02/21 22:30 05/02/21 23:29 DC 05/02/21 22:31 1,000 MLS/HR Allergies: Allergies: Allergies Coded Allergies Type Severity Reaction Last Updated Verified No Known Drug Allergies 07/08/19 No Physical Exam: PE: Constitutional: Well developed, well nourished, no acute distress, non-toxic appearance. HENT: Normocephalic, atraumatic, Eyes: PERRLA, EOMI, conjunctiva normal, no discharge, no nystagmus Neck: Normal range of motion, supple, Cardiovascular: S1/2 present, regular rhythm Lungs & Thorax: Speaking in full sentences, bilateral equal chest rise, no tachypnea or increased work of breathing Abdomen: soft, no tenderness, Skin: Warm, dry, no erythema, no rash. [] Back: No tenderness, no CVA tenderness. [] Extremities: No tenderness, no cyanosis, Neurologic: CN2-12 intact, GCS 15, Alert and oriented X 3, normal motor function, normal sensory function, no focal deficits noted, steady gait, no ataxia Psychologic: Affect normal, judgement normal, mood normal. [] Current Patient Data: Labs: Laboratory Tests Test 05/02/21 21:55 White Blood Count 8.6 x10^3/uL (4.0-11.0) Red Blood Count 4.94 x10^6/uL (4.30-5.70) Hemoglobin 13.8 g/dL (13.0-17.5) Hematocrit 42.6 % (39.0-53.0) Mean Corpuscular Volume 86 fL (79-100) Mean Corpuscular Hemoglobin 28 pg (25-35) Mean Corpuscular Hemoglobin Concent 32 g/dL (31-37) Red Cell Distribution Width 14.7 % (11.5-14.5) H Platelet Count 256 x10^3/uL (140-400) Neutrophils (%) (Auto) 57 % (31-73) Lymphocytes (%) (Auto) 29 % (24-48) Monocytes (%) (Auto) 11 % (0-9) H Eosinophils (%) (Auto) 2 % (0-3) Basophils (%) (Auto) 0 % (0-3) Neutrophils # (Auto) 4.9 x10^3/uL (1.8-7.7) Lymphocytes # (Auto) 2.5 x10^3/uL (1.0-4.8) Monocytes # (Auto) 1.0 x10^3/uL (0.0-1.1) Eosinophils # (Auto) 0.2 x10^3/uL (0.0-0.7) Basophils # (Auto) 0.0 x10^3/uL (0.0-0.2) Sodium Level 139 mmol/L (136-145) Potassium Level 3.7 mmol/L (3.5-5.1) Chloride Level 103 mmol/L (98-107) Carbon Dioxide Level 30 mmol/L (21-32) Anion Gap 6 (6-14) Blood Urea Nitrogen 17 mg/dL (8-26) Creatinine 1.0 mg/dL (0.7-1.3) Estimated GFR (Cockcroft-Gault) 89.1 BUN/Creatinine Ratio 17 (6-20) Glucose Level 147 mg/dL (70-99) H Calcium Level 8.8 mg/dL (8.5-10.1) Total Bilirubin 0.2 mg/dL (0.2-1.0) Aspartate Amino Transferase (AST) 15 U/L (15-37) Alanine Aminotransferase (ALT) 49 U/L (16-63) Alkaline Phosphatase 88 U/L (46-116) Total Protein 7.5 g/dL (6.4-8.2) Albumin 3.5 g/dL (3.4-5.0) Albumin/Globulin Ratio 0.9 (1.0-1.7) L Laboratory Tests 05/02/21 21:55 Laboratory Tests 05/02/21 21:55 Vital Signs: Vital Signs Date Time Temp Pulse Resp B/P (MAP) Pulse Ox O2 Delivery O2 Flow Rate FiO2 05/02/21 21:45 98.2 66 13 160/87 (111) 98 Room Air 98.2 EKG: EKG: Attention 62 bpm, left axis deviation, normal intervals, no T wave inversion, no ST elevation or ST depression Radiology/Procedures: Radiology/Procedures: IMAGING REPORT Signed PATIENT: FRIDA MIDDLETON DACCOUNT: [id number] : 1950 LOCATION: ER AGE: 70 SEX: M EXAM STATUS: REG ER ORD. PHYSICIAN: SRAVAN BARDALES DO REASON: headache [phone] PROCEDURE: CT HEAD WO CONTRAST Exam: CT head. CTA head and neck INDICATION: Headache TECHNIQUE: Sequential axial images through the head were obtained without the administration of IV contrast. Sequential axial images through the head and neck were obtained following the administration of 100 mL of Isovue-370. Exposure: One or more of the following in the visualized dose reduction tech niques were utilized for this examination: 1. Automated exposure control 2. Adjustment of the MA and/or KV according to patient size 3. Use of iterative of reconstructive technique Comparisons: 06/11/2019 FINDINGS: Head: No focal parenchymal lesion or hemorrhage is identified. There is no midline shift or sulcal effacement. Patchy evidence in the periventricular white matter, similar prior. No acute vascular territory infarction is identified. Blanco-white distinction is preserved. The ventricular system is within normal limits without compression hydrocephalus. The basal cisterns are well maintained. The visualized portions of the paranasal sinuses and mastoid air cells are well-pneumatized. No acute fractures. CTA neck: Visualized portions of the thoracic aorta are normal. Standard three-vessel aortic arch anatomy. Right common carotid artery is patent without evidence stenosis, occlusion or aneurysm. Minimal plaque at the origin of the right internal carotid artery without significant stenosis. Left common carotid artery is patent without evidence of stenosis, occlusion or aneurysm. Cervical segment of the left internal carotid artery is patent without evidence of stenosis, occlusion or aneurysm. There is a focal moderate stenosis at the V4 segment of the right vertebral artery series 2 image 232. The vertebral artery is patent more distally. Left vertebral artery is patent to the basilar confluence without evidence of stenosis, occlusion or aneurysm. Visualized paraspinal soft tissues are unremarkable. CTA head: Calcified plaque at the cavernous segment of the right internal carotid artery without significant stenosis. Right MCA is patent. Right JAYNE is patent. Calcified plaque cavernous segment left internal carotid artery without significant stenosis. Left MCA is patent. Left JAYNE is patent. Basilar artery is patent without evidence of stenosis, occlusion or aneurysm. supervisor opening and picking are patent bilaterally. IMPRESSION: 1. No acute intracranial abnormality. 2. Minimal calcified plaque at the cavernous segment of the internal carotid arteries bilaterally without significant stenosis. 3. Mild plaque at the origin of the internal carotid arteries bilaterally without significant stenosis 4. Focal moderate stenosis at the V4 segment of the right vertebral artery. Electronically signed by: Bon Davidson MD (05/02/2021 11:30 PM) [facility] DICTATED and SIGNED BY: BON DAVIDSON MD DATE: 05/02/21 [id number] 0 Course & Med Decision Making: Course & Med Decision Making Pertinent Labs and Imaging studies reviewed. (See chart for details) Concern for progressively worsening headache of 2 weeks, in a well-appearing male, normal neurologic exam. CT images reveal no intracranial mass, hemorrhage or ischemia. Unremarkable labs. Patient is hemodynamically stable. On reevaluation states headache has almost fully resolved. Is ambulatory in no distress. Feels well to return home with daughter. Will discharge home with strict ED return precautions were given for severe worsening headache, confusion, nausea, vomiting or neurologic deficits. Encouraged urgent outpatient follow-up with PMD and neurology for definitive management of headaches. Life- threatening processes were considered but are low suspicion at this time, given history, physical exam and ED workup. Pt was educated on all prescription medications and adverse effects. All patient's questions were answered and pt was stable at time of discharge. Life/limb-threatening differential includes but is not limited to, meningitis, encephalitis, intracranial hemorrhage, obstructive hydrocephaly, CVA, carbon monoxide poisoning, cerebral or cavernous venous thrombosis, hypertensive emergency, preeclampsia, giant cell arteritis, glaucoma, carotid or vertebral artery dissection, superior vena cava syndrome, infection, optic neuritis, or space-occupying lesions. I have spoken with the patient and/or caregivers. I explained the patient's condition, diagnoses and treatment plan based on the information available to me at this time. I have answered the patient and/or caregiver's questions and addressed any concerns. The patient and/or caregivers have a good understanding of patient's diagnosis, condition and treatment plan as can be expected at this point. Vital signs have been stable. Patient's condition is stable and appropriate for discharge from the emergency department. Patient will pursue further outpatient evaluation with primary care physician or other designated or consulting physician as outlined in the discharge instructions. The patient and/or caregivers are agreeable to this plan of care and follow-up instructions have been explained in detail. The patient and/or caregivers have received these instructions in written form and have expressed an understanding of the discharge instructions. The patient and/or caregivers are aware that any significant change of condition or worsening of symptoms should prompt immediate return to this or the closest emergency department or call to [phone]. Jamison Disclaimer: Jamison Disclaimer: This electronic medical record was generated, in whole or in part, using a voice recognition dictation system. Departure Departure Impression: Primary Impression: Headache Disposition: HOME / SELF CARE / HOMELESS Condition: STABLE Referrals: DENIZ CABRERA MD (PCP) in 1-2 days for re-evaluation Patient Instructions: General Headache Without Cause Additional Instructions: FOLLOW UP WITH NEUROLOGY: FOR DEFINITIVE MANAGEMENT of headaches/migraines [facility] [address] [facility], [address] [id number] EMERGENCY DEPARTMENT GENERAL DISCHARGE INSTRUCTIONS Thank you for coming to [facility] Emergency Department (ED) today and trusting us with you care. We trust that you had a positive experience in our Emergency Department. If you wish to speak to the department management, you may call the Director at [phone]. YOUR FOLLOW UP INSTRUCTIONS ARE FOLLOWS: 1. Do you have a private Doctor? If you do not have a private doctor, please ask for a resource list of physicians or clinics that may be able to assist you with follow up care. 2. The Emergency Physicain has interpreted your x-rays. The X-Ray specialist will also review them. If there is a change in the findings, you will be notified in 48 hours when at all possible. 3. A lab test or culture has been done, your results will be reviewed and you will be notified if you need a change in treatment. ADDITIONAL INSTRUCTIONS AND INFORMATION: 1. Your care today has been supervised by a physician who is specially trained in emergency care. Many problems require more than one evaluation for a complete diagnosis and treatment. We recommend that you schedule your follow up appointment as recommended to ensure complete treatment of you illness or injury. If you are unable to obtain follow up care and continue to have a problem, or if your condition worsens, we recommend that you return to the ED. 2. We are not able to safely determine your condition over the phone nor are we able to give sound medical advice over the phone. For these safety reasons, if you call for medical advice we will ask you to come to the ED for further evaluation. 3. If you have any questions regarding these discharge instructions please call the ED at [phone]. SAFETY INFORMATION: In the interest of safety, wellness, and injury prevention; we encourage you to wear your sealbelt, if you smoke; quite smoking, and we encourage family to use a prot ective helmet for bicycling and other sporting events that present an increased risk for head injury. IF YOUR SYMPTOMS WORSEN OR NEW SYMPTOMS DEVELOP, OR YOU HAVE CONCERNS ABOUT YOUR CONDITION; OR IF YOUR CONDITION WORSENS WHILE YOU ARE WAITING FOR YOUR FOLLOW UP APPOINTMENT; EITHER CONTACT YOUR PRIMARY CARE DOCTOR, THE PHYSICIAN WHOSE NAME AND NUMBER YOU WERE GIVEN, OR RETURN TO THE ED IMMEDIATELY. [facility]ALS[facility] DO May 02, 2021 23:53
[2021-05-03] MEDS ORDERED: KETOROLAC 15 MG/ML VIAL. IVP ONE (00:30)
[2021-05-03 00:46] VITALS: BP 151/87
== END 2021-05-03 01:04 | disposition home or self-care (01) ==
LOC: ER 21:36
DX: R51.9 Headache, unspecified (principal); R42 Dizziness and giddiness; E11.9 Type 2 diabetes mellitus without complications; I10 Essential (primary) hypertension; E78.00 Pure hypercholesterolemia, unspecified; M10.9 Gout, unspecified; E66.9 Obesity, unspecified; Z68.41 Body mass index [BMI] 40.0-44.9, adult; Z86.73 Personal history of transient ischemic attack (TIA), and cerebral infarction without residual deficits
CPT/HCPCS: 36415; 70450; 70496; 70498; 80053; 85025; 96361; 96374; 96375; 99285; J0780; J1100; J1200; J1885; J7030